=== PATIENT | female | born 1985 | race Caucasian/White ===

== ENCOUNTER 2020-08-25 12:20 | Outpatient (CLI) | payer OTHER, SELFPAY ==
--- NOTE | ~2020-08-25 | US_ITS ---
EXAMINATION: US breast LT limited HISTORY: Palpable lump in the upper outer quadrant of the left breast TECHNIQUE: Limited left breast ultrasound is performed in the area of clinical concern COMPARISON: 11/22/2019 FINDINGS: There is no evidence of focal abnormal cystic or solid mass in the vicinity of the reported palpable abnormality of concern of the breast. IMPRESSION: No specific sonographic correlate is identified for the reported palpable abnormality of concern. Fur ther evaluation at this time should be based on clinical assessment. Continued follow-up physical exa mination is recommended. BI-RADS Category 1: Negative Reviewed, dictated and finalized at location A. IMPRESSION: No specific sonographic correlate is identified for the reported palpable abnor mality of concern. Further evaluation at this time should be based on clinical assessment. Continued follow-up physical examination is recommended. BI-RADS Category 1: Negative
== END 2020-08-25 12:21 | disposition home or self-care (01) ==
PROVIDERS: PCP Internal Medicine; Visit Provider Obstetrics & Gynecology
DX: N63.20 Unspecified lump in the left breast, unspecified quadrant (principal)
CPT/HCPCS: 76642

== ENCOUNTER 2020-09-13 08:00 | Outpatient (CLI) | payer OTHER, SELFPAY ==
--- NOTE | ~2020-09-13 | US_ITS ---
EXAMINATION: US pelvic complete w TV DATE: 09/13/2020 08:32 INDICATION: Uterine fibroid Comparison:09/12/2017 TECHNIQUE: Multiple transabdominal and endovaginal sonographic images of the pelvis performed. FINDINGS: The uterus measures 10.3 x 3.6 x 5.5 cm. There is a uterine fibroid measuring 2.9 x 2.6 x 2 .3 cm. There is a nabothian cysts. The endometrial complex measures 7 mm. The right ovary measures 2.9 x 1.7 x 2.5 cm and the left ovary measures 3.1 x 2.5 x 2.3 cm. There ar e small follicles in each ovary. There is no free fluid in the pelvis. There are no abnormal masses seen on either side. IMPRESSION: 1. Enlarged uterus with fibroid measuring 2.9 cm maximum Reviewed, dictated and finalized at location B.
== END 2020-09-13 08:01 | disposition home or self-care (01) ==
LOC: CHSIMG 08:02
PROVIDERS: PCP Internal Medicine; Visit Provider Obstetrics & Gynecology
DX: N93.9 Abnormal uterine and vaginal bleeding, unspecified (principal)
CPT/HCPCS: 76830; 76856

== ENCOUNTER 2021-02-07 11:41 | Outpatient (CLI) | payer OTHER, SELFPAY | END 2021-02-07 11:42 | disposition home or self-care (01) | LOC: ANHCOVIDVC 11:42 | PROVIDERS: PCP Internal Medicine | DX: Z23 Encounter for immunization (principal) | CPT/HCPCS: 0001A; 91300 ==

== ENCOUNTER 2021-02-21 08:57 | Outpatient (CLI) | payer OTHER, SELFPAY ==
--- NOTE | ~2021-02-21 | US_ITS ---
EXAMINATION: US pelvic complete w TV DATE: 02/21/2021 10:27 INDICATION: Uterine fibroids Comparison:09/13/2020 TECHNIQUE: Multiple transabdominal and endovaginal sonographic images of the pelvis performed. FINDINGS: The uterus measures 12.1 x 5 x 6.3 cm. There is a uterine fibroid measuring 2.5 x 2 x 1.4 c m compared with 2.6 x 2.9 x 2.3 cm on prior study. The endometrial complex measures 9 mm. The right ovary measures 2.4 x 2.7 x 1.7 cm and the left ovary measures 3.1 x 2.4 x 2.1 cm. There ar e small follicles in each ovary. Normal doppler signal in both ovaries. There is no free fluid in the pelvis. There are no abnormal masses seen on either side. IMPRESSION: 1. Enlarged uterus containing a fibroid measuring up to 2.5 cm, which has diminished in size compared with prior study. Reviewed, dictated and finalized at location B. IMPRESSION: 1. Enlarged uterus containing a fibroid measuring up to 2.5 cm, which has dimin ished in size compared with prior study.
[2021-02-21 09:12] LABS: Basophils Absolute Auto 0.08 K/mm3 (0.00-0.10); Basophils Percent Auto 0.6 % (0.0-1.0); Eosinophils Absolute Auto 0.28 K/mm3 (0.02-0.50); Eosinophils Percent Auto 2.1 % (1.0-6.0); Hematocrit 42.1 % (35.0-49.0); Immature Granulocyte Absolute 0.05 K/mm3 (0.00-0.00); Immature Granulocyte Percent A 0.4 % (0.0-0.0); Lymphocytes Absolute Auto 4.85 K/mm3 (1.10-4.50); Lymphocytes Percent Auto 35.8 % (18.0-42.0); Mean Corpuscular HGB Conc 33.3 g/dL (32.0-36.0); Mean Corpuscular Hemoglobin 30.4 pg (27.0-31.0); Mean Corpuscular Volume 91.3 fL (78.0-102.0); Mean Platelet Volume 9.7 fl (9.2-11.8); Monocytes Percent Auto 6.6 % (2.0-11.0); Neutrophils Absolute Auto 7.4 K/mm3 (1.7-7.2); Neutrophils Percent Auto 54.5 % (50.0-70.0); Platelet Count Result 330 K/mm3 (150-420); Red Blood Count 4.61 M/mm3 (4.20-5.40); Red Cell Distribution Width 13.6 % (11.6-14.4); White Blood Count 13.5 K/mm3 (4.8-10.8)
[2021-02-21 09:21] LABS: Hemoglobin A1C 5.8 % (<5.7)
[2021-02-21 10:10] LABS: Add Urine Microscopic? NO; Appearance Urine Clear (Clear); Bilirubin Urine Negative (Negative); Blood Urine Negative (Negative); Color Urine Yellow (Yellow); Glucose Urine UA Negative (Negative); Ketones Urine Negative (Negative); Leukocyte Esterase Ur Negative LEU/UL (Negative); Nitrate Urine Negative (Negative); Protein Urine Negative (Negative); Urobilinogen Urine 0.2 mg/dL (0.2-1.0)
[2021-02-21 10:27] LABS: Creatinine Urine 117.92 mg/dL (40-278); Microalbumin Urine Random < 13.0 mg/L
[2021-02-21 10:28] LABS: Alanine Aminotransferase 38 U/L (14-59); Albumin Level 3.9 g/dL (3.4-5.0); Alkaline Phosphatase 73 U/L (46-116); Anion Gap 11 mmol/L (8-16); Aspartate Amino Transferase 16 U/L (15-37); Bilirubin,Total 0.3 mg/dL (0.00-1.00); Blood Urea Nitrogen 18 mg/dL (7-18); Calcium 8.8 mg/dL (8.5-10.1); Carbon Dioxide 26 mmol/L (21-32); Chloride 101 mmol/L (98-108); Cholesterol 150 mg/dL (0-200); Creatine Kinase 59 U/L (26-192); Estimated Glomerular Filt Rate 58; Glucose 104 mg/dL (70-99); HDL Direct 44 mg/dL (40-60); LDL Cholesterol Calculated 61 mg/dL (<130); Osmolality Calculated 287 mOsm/kg (285-295); Potassium 4.3 mmol/L (3.5-5.1); Sodium 138 mmol/L (136-145); Total Protein 7.2 g/dL (6.4-8.2); Triglycerides 223 mg/dL (0-150)
[2021-02-23 12:17] LABS: Vitamin D 25 Hydroxy 40 ng/mL (30-100)
== END 2021-02-21 08:58 | disposition home or self-care (01) ==
PROVIDERS: PCP Internal Medicine; Visit Provider Obstetrics & Gynecology
DX: E78.5 Hyperlipidemia, unspecified (principal); E55.9 Vitamin D deficiency, unspecified; R73.01 Impaired fasting glucose; D25.9 Leiomyoma of uterus, unspecified
CPT/HCPCS: 36415; 76830; 76856; 80053; 80061; 81003; 82043; 82306; 82550; 83036; 85025

== ENCOUNTER 2021-02-27 15:34 | Outpatient (CLI) | payer OTHER, SELFPAY ==
[2021-02-27 15:54] LABS: Basophils Absolute Auto 0.07 K/mm3 (0.00-0.10); Basophils Percent Auto 0.7 % (0.0-1.0); Eosinophils Absolute Auto 0.18 K/mm3 (0.02-0.50); Eosinophils Percent Auto 1.8 % (1.0-6.0); Hematocrit 42.3 % (35.0-49.0); Hemoglobin 14.3 g/dL (12.0-15.0); Immature Granulocyte Absolute 0.04 K/mm3 (0.00-0.00); Immature Granulocyte Percent A 0.4 % (0.0-0.0); Lymphocytes Percent Auto 38.9 % (18.0-42.0); Mean Corpuscular HGB Conc 33.8 g/dL (32.0-36.0); Mean Corpuscular Hemoglobin 30.6 pg (27.0-31.0); Mean Corpuscular Volume 90.6 fL (78.0-102.0); Mean Platelet Volume 9.6 fl (9.2-11.8); Monocytes Absolute Auto 0.56 K/mm3 (0.10-0.90); Monocytes Percent Auto 5.4 % (2.0-11.0); Neutrophils Absolute Auto 5.4 K/mm3 (1.7-7.2); Neutrophils Percent Auto 52.8 % (50.0-70.0); Platelet Count Result 358 K/mm3 (150-420); Red Blood Count 4.67 M/mm3 (4.20-5.40); Red Cell Distribution Width 13.2 % (11.6-14.4); White Blood Count 10.3 K/mm3 (4.8-10.8)
[2021-02-27 16:15] LABS: Hemoglobin A1C 5.7 % (<5.7)
[2021-02-27 17:10] LABS: Cholesterol 228 mg/dL (0-200); HDL Direct 45 mg/dL (40-60); LDL Cholesterol Calculated 133 mg/dL (<130); Triglycerides 248 mg/dL (0-150)
[2021-03-02 11:09] LABS: DHEA-Sulfate 98 mcg/dL (23-266)
[2021-03-03 08:31] LABS: FSH 8.8 mIU/mL (***); LH 4.8 mIU/mL (***); Progesterone <0.2 ng/mL (***)
[2021-03-03 12:55] LABS: Testosterone Free 3.1 pg/mL (0.1-6.4); Testosterone Total 36 ng/dL (2-45)
[2021-03-05 17:17] LABS: Estradiol, Ultrasensitive 42 pg/mL
[2021-03-06 13:42] LABS: Reference Lab Test Name AMH
[2021-03-06 13:43] LABS: Reference Lab Test Result 2.98
[2021-03-16 09:02] LABS: Sex Hormone Binding Globulin 71
== END 2021-02-27 15:35 | disposition home or self-care (01) ==
LOC: CHSLAB 15:38
PROVIDERS: PCP Internal Medicine; Visit Provider Obstetrics & Gynecology
DX: N92.6 Irregular menstruation, unspecified (principal)
CPT/HCPCS: 36415; 80061; 82627; 82670; 83001; 83002; 83036; 83498; 83520; 84144; 84270; 84402; 84403; 84443; 85025

== ENCOUNTER 2021-03-02 11:42 | Outpatient (CLI) | payer OTHER, SELFPAY | END 2021-03-02 11:43 | disposition home or self-care (01) | LOC: ANHCOVIDVC 11:42 | PROVIDERS: PCP Internal Medicine | DX: Z23 Encounter for immunization (principal) | CPT/HCPCS: 0002A; 91300 ==

== ENCOUNTER 2021-03-10 13:52 | Outpatient (CLI) | payer OTHER, SELFPAY ==
[2021-03-10 14:21] LABS: SARS-CoV-2 Ag Negative (Negative)
== END 2021-03-10 13:53 | disposition home or self-care (01) ==
LOC: CHSLAB 13:56
PROVIDERS: PCP Internal Medicine; Visit Provider Obstetrics & Gynecology
DX: Z20.822 Contact with and (suspected) exposure to COVID-19 (principal)
CPT/HCPCS: 87426; C9803

== ENCOUNTER 2021-03-13 18:03 | Emergency (ER) | payer OTHER, SELFPAY ==
--- NOTE | ~2021-03-13 | CT_ITS ---
EXAMINATION: CTA chest PE protocol DATE: 03/13/2021 19:35 CDT INDICATION: Chest pain and tachycardia. Wheezing. Chest pain. TECHNIQUE: Computed tomographic angiography (CTA) of the chest was performed with 100 mL Omnipaque-35 0 intravenous contrast. The dose-length product was 958.06 mGy-cm. Maximum intensity projection 3D-re constructions of the aorta and other arteries were constructed by the technologist on a separate work station. Automated exposure control and iterative reconstruction technique were employed. COMPARISON: Chest x-ray dated 08/16/2019. FINDINGS: The study is technically adequate without evidence for pulmonary embolism. Heart size upper normal. No thoracic lymphadenopathy. No significant pleural or pericardial effusion. No evidence for aortic aneurysm or dissection. There is a 6 mm fissural nodule, likely benign. No focal airspace con solidation. IMPRESSION: 1. No acute cardiopulmonary disease. No evidence for pulmonary embolism. 2: Right fissural nodule measuring 6 mm, likely benign. Consider follow-up low dose CT chest in 12 mo nt. Reviewed, dictated and finalized at location A. IMPRESSION: 1. No acute cardiopulmonary disease. No evidence for pulmonary embolism. 2: Right fissural nodule measuring 6 mm, likely benign. Consider follow-up low dose CT chest in 12 months.
[2021-03-13 18:23] VITALS: BP 124/73; PULSE 105; RESP 20; TEMP 36.9; O2SAT 97
--- NOTE | 2021-03-13 18:26 | ED.CHESTPAIN ---
HPI - Chest Pain General Chief Complaint: Upper Respiratory Infection Stated Complaint: wheezing, congested, just had surgery Time Seen by Provider: 03/13/21 18:26 Source: patient Mode of arrival: ambulatory Limitations: no limitations History of Present Illness HPI narrative: 35-year-old woman history of COPD and asthma comes in today complaining of mild shortness of breath, cough, wheezing, and some a lower left anterior chest discomfort. Patient states that she had surgery yesterday for which she underwent general anesthesia. She denies fever, pleuritic pain, vomiting, abdominal pain, throat swelling, or sputum or blood production. Inhaler seemed to help her symptoms somewhat. MD complaint: chest discomfort Onset (ago): day(s) (1) Timing of current episode: constant and still present Prior episodes: No Onset: during rest Pain location: left chest Pain radiation: none Severity: moderate Quality: sharp Relieving factors: nothing Exacerbating factors: nothing Context: recent surgery Treatment prior to arrival: none Risk Factors Coronary artery disease risk factors: smoking history Pulmonary embolism risk factors: recent surgery Related Data On Oral Contraceptives: No Home Medications Medication Instructions Recorded Confirmed albuterol sulfate 2 inh INHALATION Q4H PRN 03/13/21 03/13/21 atorvastatin 20 mg PO DAILY 03/13/21 03/13/21 cholecalciferol (vitamin D3) 25 mcg PO DAILY 03/13/21 03/13/21 [Vitamin D3] duloxetine 30 mg PO DAILY 03/13/21 03/13/21 metoprolol tartrate 25 mg PO DAILY 03/13/21 03/13/21 [id number]-FA-vit K 1 tablet PO DAILY 03/13/21 03/13/21 [Adults Multivitamin] Allergies Allergy/AdvReac Type Severity Reaction Status Date / Time No Known Allergies Allergy Unverified 03/13/21 18:36 Review of Systems Constitutional: Constitutional: Denies chills and Denies fever(s) Eyes: Eyes: Denies change in vision and Denies photophobia ENT: Denies dysphagia, Denies nasal congestion and Denies sore throat Cardiovascular: Cardiovascular: Reports chest pain and Denies radiating jaw, neck or arm pain Respiratory: Respiratory: Reports chest congestion, Reports cough, Reports dyspnea and Reports wheezing Gastrointestinal: Gastrointestinal: Denies abdominal pain, Denies nausea and Denies vomiting Musculoskeletal: Musculoskeletal: Denies back pain, Denies arthralgias and Denies joint swelling Integumentary/Breasts: Skin/Breast: Denies pruritus, Denies erythema and Denies rash Neurologic: Denies vertigo, Denies dizziness and Denies syncope Hematologic/Lymphatic: Hematologic/Lymphatic: Denies easy bleeding and Denies easy bruising Allergic/Immunologic: Allergic/Immunologic: Denies lip swelling and Denies tongue swelling [facility] Past Medical History Medical History (Updated 03/13/21 @ 19:51 by Yuri Medrano MD) Asthma COPD (chronic obstructive pulmonary disease) Tachycardia Social History Social History (Updated 03/13/21 @ 18:31 by Yuri Medrano MD) Smoking status: Current every day smoker Substance use: never Living arrangements: with family Gender identity (if verbalized by the patient): Female Exam Const: General: healthy appearing and alert Nutritional Appearance: obese Orientation/consciousness: patient oriented x3 Limitations: no limitations Other: Mildly anxious. HENMT: Head: normal to inspection Ears: external ears normal, TM's normal bilaterally and EAC's normal General nose exam: Normal nares present Face and sinus: normal facial exam Mouth: Yes moist mucous membranes Throat: posterior oropharynx normal Eyes: Conjunctivae: conjunctivae normal Pupils: Equal, round and reactive pupils present EOM: EOMs intact bilaterally Neck: Neck: normal visual inspection and no lymphadenopathy Other: No tenderness or crepitus Resp: Effort & Inspection: normal respiratory effort and not labored Auscultation: no rales, no rhonchi and wheezes expiratory
[2021-03-13 18:49] LABS: Hematocrit 39.2 % (35.0-49.0); Hemoglobin 13.2 g/dL (12.0-15.0); Mean Corpuscular HGB Conc 33.7 g/dL (32.0-36.0); Mean Corpuscular Hemoglobin 30.8 pg (27.0-31.0); Mean Corpuscular Volume 91.4 fL (78.0-102.0); Mean Platelet Volume 9.6 fl (9.2-11.8); Platelet Count Result 356 K/mm3 (150-420); Red Blood Count 4.29 M/mm3 (4.20-5.40); Red Cell Distribution Width 13.2 % (11.6-14.4)
[2021-03-13 18:53] LABS: White Blood Count 20.7 K/mm3 (4.8-10.8)
[2021-03-13 18:59] LABS: Pregnancy On Board Control Positive; Urine Pregnancy Test Negative
[2021-03-13 19:04] LABS: Alanine Aminotransferase 52 U/L (14-59); Alkaline Phosphatase 65 U/L (46-116); Anion Gap 10 mmol/L (8-16); Aspartate Amino Transferase 22 U/L (15-37); Bilirubin,Total 0.4 mg/dL (0.00-1.00); Blood Urea Nitrogen 18 mg/dL (7-18); Carbon Dioxide 29 mmol/L (21-32); Chloride 101 mmol/L (98-108); D Dimer 0.19 mg/L (0.19-0.50); Estimated CRCL calculation 70 ml/min; Estimated Glomerular Filt Rate 60; Glucose 93 mg/dL (70-99); Osmolality Calculated 291 mOsm/kg (285-295); Partial Thromboplastin Time 21.3 SEC (23.90-30.70); Potassium 3.7 mmol/L (3.5-5.1); Prothrombin Time 11.1 Seconds (9.50-12.10); Sodium 140 mmol/L (136-145); Total Protein 7.4 g/dL (6.4-8.2)
[2021-03-13 19:05] LABS: Band Neutrophils Percent 0 % (0-6); Basophils Percent Manual 0 % (0-1); Eosinophils Percent Manual 0 % (1-6); Lymphocytes Absolute Manual 6.83 K/mm3 (1.1-4.5); Lymphocytes Percent Manual 33 % (18-44); Monocytes Absolute Manual 1.03 K/mm3 (0.1-0.90); Monocytes Percent Manual 5 % (3-9); Neutrophils Absolute Manual 12.83 K/mm3 (1.7-7.2); Neutrophils Percent Manual 62 % (46-73); Total Cells Counted 100
[2021-03-13 19:06] LABS: Platelet Estimate Adequate (Adequate)
[2021-03-13 19:55] LABS: Influenza A QL RT-PCR Negative (Negative); Influenza B QL RT-PCR Negative (Negative); SARS-CoV-2 RNA PCR Negative (Negative)
[2021-03-13 20:22] VITALS: BP 134/78; PULSE 99; RESP 20; TEMP 36.9; O2SAT 97
== END 2021-03-13 20:32 | disposition home or self-care (01) ==
PROVIDERS: Emergency Provider Emergency Medicine; PCP Internal Medicine
DX: J98.01 Acute bronchospasm (principal); Z20.822 Contact with and (suspected) exposure to COVID-19; F17.200 Nicotine dependence, unspecified, uncomplicated
CPT/HCPCS: 36415; 71275; 80053; 81025; 85025; 85380; 85610; 85730; 87040; 87077; 87086; 87088; 87186; 87502; 99283; 99284; C9803; Q9967; U0003; U0005

== ENCOUNTER 2021-07-09 11:20 | Outpatient (CLI) | payer OTHER, SELFPAY ==
[2021-07-09 12:59] LABS: SARS-CoV-2 RNA PCR Negative (Negative)
== END 2021-07-09 11:21 | disposition home or self-care (01) ==
LOC: CHSLAB 11:22
PROVIDERS: PCP Internal Medicine; Visit Provider Internal Medicine
DX: J06.9 Acute upper respiratory infection, unspecified (principal); Z20.822 Contact with and (suspected) exposure to COVID-19
CPT/HCPCS: C9803; U0003; U0005

== ENCOUNTER 2021-07-26 08:49 | Outpatient (CLI) | payer OTHER, SELFPAY ==
[2021-07-26 10:00] LABS: SARS-CoV-2 RNA PCR Positive (Negative)
== END 2021-07-26 08:50 | disposition home or self-care (01) ==
LOC: CHSLAB 08:50
PROVIDERS: PCP Internal Medicine; Visit Provider Internal Medicine
DX: U07.1 COVID-19 (principal); J06.9 Acute upper respiratory infection, unspecified
CPT/HCPCS: C9803; U0003; U0005

== ENCOUNTER 2021-07-27 11:57 | Outpatient (CLI) | payer OTHER, SELFPAY ==
[2021-07-27] MEDS: ACETAMINOPHEN 325 MG TABLET 650 MG PO (12:45)
[2021-07-27 12:56] VITALS: BMI 37.9
[2021-07-27 12:59] VITALS: BP 110/67; PULSE 92; RESP 16; TEMP 37.4; O2SAT 98
[2021-07-27] MEDS: FAMOTIDINE 20 MG TABLET PO (13:15)
[2021-07-27] MEDS: diphenhydrAMINE HCl CAP 25 MG CAPSULE PO (13:15)
[2021-07-27 14:41] VITALS: BP 107/70; PULSE 80; RESP 14; TEMP 37.2; O2SAT 98
--- NOTE | 2021-07-27 14:42 | PC.NURSE ---
Patient here for IV Regeneron infusion r/t covid positive and meeting criteria for high risk. Education on medication given. All concerns answered. Oral pre meds and IV Regeneron administered SEE JAN. Has body aches, non productive cough, and slight headache prior. Tolerated infusion well. Observed. Safe exit of hospital.
== END 2021-07-27 11:58 | disposition home or self-care (01) ==
LOC: CHSTREATRM 11:59
PROVIDERS: PCP Internal Medicine; Visit Provider Internal Medicine
DX: Z23 Encounter for immunization (principal); U07.1 COVID-19
CPT/HCPCS: A9270; J7050; M0243

== ENCOUNTER 2022-03-29 10:39 | Outpatient (CLI) | payer OTHER, SELFPAY ==
[2022-03-29 10:59] LABS: Basophils Percent Auto 0.7 % (0.0-1.0); Eosinophils Absolute Auto 0.28 K/mm3 (0.02-0.50); Eosinophils Percent Auto 1.8 % (1.0-6.0); Hematocrit 43.3 % (35.0-49.0); Hemoglobin 14.5 g/dL (12.0-15.0); Immature Granulocyte Absolute 0.09 K/mm3 (0.00-0.00); Immature Granulocyte Percent A 0.6 % (0.0-0.0); Lymphocytes Absolute Auto 5.22 K/mm3 (1.10-4.50); Lymphocytes Percent Auto 34.3 % (18.0-42.0); Mean Corpuscular HGB Conc 33.5 g/dL (32.0-36.0); Mean Corpuscular Hemoglobin 30.8 pg (27.0-31.0); Mean Corpuscular Volume 91.9 fL (78.0-102.0); Mean Platelet Volume 10.1 fl (9.2-11.8); Monocytes Absolute Auto 1.02 K/mm3 (0.10-0.90); Monocytes Percent Auto 6.7 % (2.0-11.0); Neutrophils Absolute Auto 8.5 K/mm3 (1.7-7.2); Neutrophils Percent Auto 55.9 % (50.0-70.0); Platelet Count Result 320 K/mm3 (150-420); Red Blood Count 4.71 M/mm3 (4.20-5.40); White Blood Count 15.2 K/mm3 (4.8-10.8)
[2022-03-29 11:27] LABS: Influenza Control Valid (Valid)
[2022-03-29 11:35] LABS: SARS-CoV-2 Ag Negative (Negative)
[2022-03-29 12:17] LABS: SARS-CoV-2 RNA PCR Negative (Negative)
== END 2022-03-29 10:40 | disposition home or self-care (01) ==
LOC: CHSLAB 10:41
PROVIDERS: PCP Internal Medicine; Visit Provider Internal Medicine
DX: J06.9 Acute upper respiratory infection, unspecified (principal); Z20.822 Contact with and (suspected) exposure to COVID-19
CPT/HCPCS: 85025; 87081; 87426; 87804; 87880; C9803; U0003; U0005

== ENCOUNTER 2022-05-01 10:20 | Outpatient (CLI) | payer OTHER, SELFPAY ==
[2022-05-01 12:10] LABS: Influenza Control Valid (Valid)
[2022-05-01 12:43] LABS: SARS-CoV-2 Ag Positive (Negative)
== END 2022-05-01 10:21 | disposition home or self-care (01) ==
LOC: CHSLAB 10:22
PROVIDERS: PCP Internal Medicine; Visit Provider Internal Medicine
DX: U07.1 COVID-19 (principal); J06.9 Acute upper respiratory infection, unspecified
CPT/HCPCS: 87081; 87426; 87804; 87880; C9803

== ENCOUNTER 2023-05-26 14:53 | Outpatient (CLI) | payer OTHER, SELFPAY ==
[2023-05-26 15:23] LABS: Basophils Absolute Auto 0.05 K/mm3 (0.00-0.10); Basophils Percent Auto 0.4 % (0.0-1.0); Eosinophils Percent Auto 0.9 % (1.0-6.0); Hematocrit 41.5 % (35.0-49.0); Hemoglobin 14.1 g/dL (12.0-15.0); Immature Granulocyte Absolute 0.04 K/mm3 (0.00-0.00); Immature Granulocyte Percent A 0.3 % (0.0-0.0); Lymphocytes Absolute Auto 3.78 K/mm3 (1.10-4.50); Lymphocytes Percent Auto 32.3 % (18.0-42.0); Mean Corpuscular Hemoglobin 31.1 pg (27.0-31.0); Mean Corpuscular Volume 91.4 fL (78.0-102.0); Mean Platelet Volume 9.8 fl (9.2-11.8); Monocytes Absolute Auto 0.63 K/mm3 (0.10-0.90); Monocytes Percent Auto 5.4 % (2.0-11.0); Neutrophils Absolute Auto 7.1 K/mm3 (1.7-7.2); Neutrophils Percent Auto 60.7 % (50.0-70.0); Platelet Count Result 349 K/mm3 (150-420); Red Blood Count 4.54 M/mm3 (4.20-5.40); Red Cell Distribution Width 12.7 % (11.6-14.4); White Blood Count 11.7 K/mm3 (4.8-10.8)
[2023-05-26 15:44] LABS: Appearance Urine Clear (Clear); Bilirubin Urine Negative (Negative); Blood Urine Trace-Intact (Negative); Color Urine Yellow (Yellow); Glucose Urine UA Negative (Negative); Ketones Urine Negative (Negative); Leukocyte Esterase Ur Negative LEU/UL (Negative); Nitrate Urine Negative (Negative); Protein Urine Negative (Negative); Specific Grav Ur 1.025 (1.010-1.020); Urobilinogen Urine 0.2 mg/dL (0.2-1.0)
[2023-05-26 15:47] LABS: Alanine Aminotransferase 42 U/L (14-59); Albumin Level 3.9 g/dL (3.4-5.0); Alkaline Phosphatase 71 U/L (46-116); Anion Gap 13 mmol/L (8-16); Aspartate Amino Transferase 17 U/L (15-37); Bilirubin,Total 0.3 mg/dL (0.00-1.00); Blood Urea Nitrogen 13 mg/dL (7-18); Carbon Dioxide 24 mmol/L (21-32); Chloride 102 mmol/L (98-108); Cholesterol 150 mg/dL (0-200); Creatine Kinase 56 U/L (26-192); Estimated Glomerular Filt Rate > 60; Glucose 103 mg/dL (70-99); HDL Direct 47 mg/dL (40-60); LDL Cholesterol Calculated 70 mg/dL (<130); Osmolality Calculated 288 mOsm/kg (285-295); Potassium 4.4 mmol/L (3.5-5.1); Sodium 139 mmol/L (136-145); Total Protein 7.6 g/dL (6.4-8.2); Triglycerides 165 mg/dL (0-150)
[2023-05-26 15:54] LABS: Add Urine Microscopic? YES
[2023-05-26 15:55] LABS: Bacteria Urine 3+ /hpf; Squamous Epithelial Cell Urine Few /hpf (Few); WBC Urine None seen /hpf (0-3)
[2023-05-26 15:58] LABS: Thyroid Stimulating Hormone Reflex 2.65 u/IU/mL (0.36-3.74)
[2023-05-28 19:53] LABS: Vitamin D 25 Hydroxy 39 ng/mL (30-100)
[2023-05-29 14:22] LABS: DHEA-Sulfate 82 mcg/dL (23-266)
[2023-05-30 04:47] LABS: FSH 7.1 mIU/mL (***); Progesterone 1.7 ng/mL (***); Prolactin 10.7 ng/mL (***)
[2023-05-30 22:06] LABS: Estradiol, Ultrasensitive 350 pg/mL
[2023-05-31 16:43] LABS: Testosterone Free 5.6 pg/mL (0.1-6.4); Testosterone Total 91 ng/dL (2-45)
== END 2023-05-26 14:54 | disposition home or self-care (01) ==
PROVIDERS: PCP Internal Medicine; Visit Provider Obstetrics & Gynecology
DX: N92.6 Irregular menstruation, unspecified (principal); E78.2 Mixed hyperlipidemia; E55.9 Vitamin D deficiency, unspecified
CPT/HCPCS: 36415; 80053; 80061; 81001; 82306; 82550; 82627; 82670; 83001; 84144; 84146; 84402; 84403; 84443; 85025

== ENCOUNTER 2023-05-29 11:56 | Outpatient (CLI) | payer OTHER, SELFPAY ==
--- NOTE | ~2023-05-29 | US_ITS ---
Pelvic ultrasound. Clinical History: Irregular menstruation Technique: Realtime transabdominal and transvaginal scanning of the pelvis was performed. Color flow Doppler and Doppler spectral analysis were performed. Findings: The uterus is anteverted. The endometrial stripe has a thickness of 8 mm. Partially exophy tic fibroid measures 2.8 cm in diameter. The right ovary measures 4.2 x 4.0 x 3.6 cm. Right ovarian cyst measures 3.4 cm in diameter, with pro bable thin internal septations. The left ovary measures 3.2 x 3.2 x 2.1 cm. No significant left ovarian or adnexal mass is seen. There is no evidence of free fluid in the cul de sac. Impression: 3.4 cm mildly complex right ovarian cyst, as detailed above. 2.8 cm uterine fibroid, as above. Reviewed, dictated and finalized at [facility]. Impression: 3.4 cm mildly complex right ovarian cyst, as detailed above. 2.8 cm uterine fibroid, as above.
== END 2023-05-29 11:57 | disposition home or self-care (01) ==
LOC: CHSIMG 11:57
PROVIDERS: PCP Internal Medicine; Visit Provider Obstetrics & Gynecology
DX: N92.6 Irregular menstruation, unspecified (principal); N83.201 Unspecified ovarian cyst, right side; D25.9 Leiomyoma of uterus, unspecified
CPT/HCPCS: 76830; 76856

== ENCOUNTER 2023-07-10 10:32 | Outpatient (CLI) | payer OTHER, SELFPAY ==
--- NOTE | 2023-07-10 11:36 | ECG_ITS ---
Measurements Intervals [place] Rate: 68 P: 38 FL: 166 QRS: 59 QRSD: 109 T: 57 QT: 390 QTc: 417 Interpretive Statements SINUS RHYTHM NORMAL ELECTROCARDIOGRAM NO PREVIOUS ECG AVAILABLE FOR COMPARISON Electronically Signed On 07-10-2023 13:32:51 CDT by Sergo Patel M.D.
== END 2023-07-10 10:33 | disposition home or self-care (01) ==
LOC: ANHSURGERY 11:31
PROVIDERS: PCP Internal Medicine; Visit Provider Obstetrics & Gynecology
DX: R00.0 Tachycardia, unspecified (principal)
CPT/HCPCS: 93005

== ENCOUNTER 2023-07-14 00:11 | Day surgery (SDC) | payer OTHER, SELFPAY ==
[2023-07-07 10:18] VITALS: BMI 36.0
--- NOTE | 2023-07-07 15:17 | PC.NURSE ---
Report to the Outpatient Waiting Room, entrance under the green pavilion located off [facility], at 0600 on 07-14-23. Planned Procedure Time: 0730. Time changes happen often and if your time is changed the preop area will call you the afternoon before. - You and your visitor will be asked to self-screen and do not enter if you have any COVID symptoms. - A mask is optional within the hospital at this time. Patients may have clear liquids (water, carbonated beverages, clear teas, apple juice) until 3 hours prior to surgery with a maximum of 20 ounces. 0430 - No food from midnight until time of surgery - Infants may have breast milk until 4 hours before surgery, formula 6 hours prior to surgery. - Children will be allowed to drink immediately following surgery. If applicable, please bring a bottle or sippy cup to assist with drinking. Juice, water, soda, and popsicles are readily available. For infants on formula, please bring formula the day of surgery. Pacifiers are allowed. Take the following medications with a SIP of water the morning of surgery: metoprolol; bring inhalers DOS DO NOT STOP ANY OF YOUR OTHER PRESCRIPTION MEDICATIONS PRIOR TO SURGERY ?EXCEPT THE FOLLOWING Medications to discontinue per physician: vitamins and supplements Date to take last dose: 07-11-23 Please no make-up, nail liberian, hairspray, perfume, deodorant, or body powder the day of surgery. No jewelry (including any body piercings) or valuables the day of surgery, leave them at home. Please take a shower or bath the night before, or the morning of, surgery with an antibacterial soap. Wear comfortable, loose fitting clothing. Children are encouraged to wear pajamas. - Jewelry must be removed prior to entering the operating room. Rings and piercings that are not removed may be cut off. - The hospital will not accept responsibility for valuables. - Please leave all valuables, including medications, at home the day of surgery. If you are going home after surgery, a licensed funeral limousine driver must drive you home. - NO public transportation without another adult if you receive anesthesia. - We recommend that an adult stay with you for 24 hours following discharge. - We also recommend that you do not drive, make important decision, drink alcoholic beverages, or take any drugs that were not prescribed by your health care provider for at least 24 hours after your discharge time. For Pediatric surgeries, we recommend two adults accompany the child home. Follow any additional instructions given to you from your surgeon. If you or anyone in your household have experienced Covid symptoms in the past week, please notify your surgeon or the nurse liaison at the phone number below for possible testing. Telephone instructions given to Keeley Monaco and asked if any additional questions and then verbalized understanding. Patient advised to call surgeon office or pre surgery nurse liaison [phone] if any additional questions.
--- NOTE | 2023-07-13 15:46 | PM.IMHP ---
H&P: HPI History of Present Illness Date/Time: 07/13/23 15:46 Chief Complaint: AUB, sterilization, pelvic pain, vaginal abscess Narrative: Keeley is a 37yo P1012, who presents for surgery. Repeat PCOS w/u was positive for testosterone of 91 and a right ovarian cyst; fibroid was noted to be unchanged. She has had a long standing h/o irregular periods; had a HSC/D&C/polypectomy 02/2021 (benign), PCOS w/u was negative then. She reports her cycles are very weird; has only had 3 episodes of light bleeding this year that last 1-2 days of spotting (Dec and twice in February). She then had a very heavy period in April with severe cramping and bleeding w/ passage of large clots. She has been having cramping on and off randomly and the pain was severe during that period. She is sexually active but no longer desires children. She does not want to take hormones as she is trying to lose weight. She also called into the office on 07/10/23 with a bartholin's gland abscess. Review of Systems Constitutional: Constitutional: Denies chills, Denies fever(s) and Denies headache(s) Eyes: Eyes: Denies change in vision ENT: Denies dizziness and Denies headache(s) Cardiovascular: Cardiovascular: Denies chest pain and Denies dyspnea Respiratory: Respiratory: Denies cough and Denies dyspnea Gastrointestinal: Gastrointestinal: Denies abdominal pain and Denies change in stool character Genitourinary: Genitourinary: Reports abnormal menses, Reports genital lesions, Reports pelvic pain, Denies vaginal discharge, Denies vaginal odor and Denies vaginal pruritus Neurologic: Denies dizziness and Denies headache(s) Psychiatric: Psychiatric: Denies anxiety and Denies depression [facility] Past Medical History Medical History Asthma COPD (chronic obstructive pulmonary disease) Encounter for IUD removal mirena iud removal 02/25/2017 High cholesterol Migraines Panic attacks Stroke Tachycardia Tonsillectomy planned Surgical History Surgical History Delivery by section H/O gynecological procedure mirena IUD insertion & removal of IUD 01/28/2017 Mirena IUD removal and subsequent insertion of new device 2011 Family History Family History Mother Diabetes mellitus Family history of seizure disorder Father Family history of chronic obstructive pulmonary disease Grandparent Cerebrovascular accident Family history of heart disease in male family member before age 55 Diabetes mellitus Other Dementia Family history of transient ischemic attacks Heart disease Hypertension Hypoglycemia Malignant tumor of ovary Pulmonary embolism Social History Social History Smoking packs per day: 0.5 Smoking cigarettes per day: 10.0 Years smoked: 15 Smoking pack-years: 7.50 Smoking status: Current every day smoker Tobacco type: cigarettes Second hand tobacco smoke exposure: No Smoking end date: 11/24/03 Alcohol intake: current Drinks per week: 3 Alcohol use details: socially Substance use: never Substance use type: does not use Lack of Transportation: YES Lack of Food: Sometimes True Current Housing: I Do Not Have Housing Concerned About Future Housing: Decline to Answer Difficulty Paying Gas/Electric Bills: Decline to Answer Difficulty Paying for Meds: Decline to Answer Currently Unemployed: Decline to Answer Education: Bachelor's Degree Difficulty w/ Childcare or Family Care: No Living arrangements: with family Occupation/Education: occupation Gender identity (if verbalized by the patient): Female Sexual Orientation (if Verbalized by the Patient): Straight or Heterosexual Spiritual care concerns: No Meds Home Medications and Allergies Home Medications Medication Instru
[2023-07-14] VITALS (9 sets, daily range): BP systolic 92–110; BP diastolic 54–83; PULSE 79–104; RESP 14–20; TEMP 36.3–36.4; O2SAT 97–100
[2023-07-14] MEDS: ACETAMINOPHEN 500 MG TABLET 1000 MG PO (06:37)
[2023-07-14] MEDS: LACTATED RINGERS 1,000 ML 30 ML IV CONT ×2 (06:45→09:08)
[2023-07-14] MEDS: KETOROLAC 15 MG/ML VIAL (*BKC) IV PUSH (06:47)
--- NOTE | 2023-07-14 07:00 | WPDANESEPPF ---
Anes - Initial Pre Proc Eval Procedure: Operation Date: 07/14/23 07:30 Proposed Procedures p Hysteroscopy Dilation and Curettage with Myomectomy, - Perla Browning MD s Right Laparoscopic Ovarian Cystectomy, Bilateral Laparoscopic Salpingectomy, - Perla Browning MD s Marsupialization of Bartholin's Gland Cyst - Perla Browning MD Date/Time: 07/14/23 07:00 Surgeon: Perla Browning MD Pre Op Diagnosis: rt ovarian cyst, abnormal uterine bleeding Patient Data Age: 37 Gender: F Height: 1.57 m Weight: 90 kg Last Vital Signs Temp 36.3 C L 07/14/23 06:12 Pulse 82 07/14/23 06:12 Resp 20 07/14/23 06:12 BP 110/83 07/14/23 06:12 Pulse Ox 100 07/14/23 06:12 O2 Del Method Room Air 07/14/23 06:12 Allergies Allergy/AdvReac Type Severity Reaction Status Date / Time amoxicillin AdvReac Mild RASH Verified 07/14/23 06:34 Home Medications Medication Instructions Recorded Confirmed Type atorvastatin 20 mg tablet 20 mg PO DAILY 03/13/21 07/14/23 History cholecalciferol (vitamin D3) 25 25 mcg PO DAILY 03/13/21 07/14/23 History mcg (1,000 unit) capsule (Vitamin D3) duloxetine 30 mg capsule,delayed 30 mg PO DAILY 03/13/21 07/14/23 History release metoprolol tartrate 25 mg tablet 25 mg PO BID 03/13/21 07/14/23 History albuterol sulfate 90 mcg/actuation 2 puff inhalation Q4H PRN 07/07/23 07/14/23 History aerosol inhaler Shortness Of Breath Or Wheezing doxylamine succinate 25 mg tablet 25 mg PO HS 07/07/23 07/14/23 History (Unisom (doxylamine)) dulaglutide 1.5 mg/0.5 mL 1.5 mg subcut WEEKLY 07/07/23 07/14/23 History subcutaneous pen injector (Trulicity) sulfamethoxazole 800 1 tablet PO Q12H #10 tabs 07/10/23 07/14/23 Rx mg-trimethoprim 160 mg tablet (Bactrim DS) Patient hx anesthesia problems: other (resp depression) Family hx anesthesia problems: none Results Review: All pre-operative results and documents have been reviewed as part of the pre-operative evaluation. [facility] Past Medical History Medical History Asthma COPD (chronic obstructive pulmonary disease) Encounter for IUD removal mirena iud removal 02/25/2017 High cholesterol Migraines Panic attacks Stroke Tachycardia Tonsillectomy planned Surgical History Surgical History Delivery by section H/O gynecological procedure mirena IUD insertion & removal of IUD 01/28/2017 Mirena IUD removal and subsequent insertion of new device 2011 Family History Family History Mother Diabetes mellitus Family history of seizure disorder Father Family history of chronic obstructive pulmonary disease Grandparent Cerebrovascular accident Family history of heart disease in male family member before age 55 Diabetes mellitus Other Dementia Family history of transient ischemic attacks Heart disease Hypertension Hypoglycemia Malignant tumor of ovary Pulmonary embolism Social History Social History Smoking packs per day: 0.5 Smoking cigarettes per day: 10.0 Years smoked: 15 Smoking pack-years: 7.50 Smoking status: Current every day smoker Tobacco type: cigarettes Second hand tobacco smoke exposure: No Smoking end date: 11/24/03 Alcohol intake: current Drinks per week: 3 Alcohol use details: socially Substance use: never Substance use type: does not use Lack of Transportation: YES Lack of Food: Sometimes True Current Housing: I Do Not Have Housing Concerned About Future Housing: Decline to Answer Difficulty Paying Gas/Electric Bills: Decline to Answer Difficulty Paying for Meds: Decline to Answer Currently Unemployed: Decline to Answer Education: Bachelor's Degree Difficulty w/ Childcare or Family Care: No L
--- NOTE | 2023-07-14 07:26 | WPDHPUPDATE1 ---
History and Physical Update Update Date/Time: 07/14/23 07:26 History and Physical has been reviewed, including an updated exam of the patient. There are NO changes in the patient's condition. Risks, benefits, and alternatives have been discussed and questions answered. Patient agrees to proceed with ?laparoscopic unilateral ovarian cystectomy, bilateral salpingectomy, HSC/ D&C, and possible myomectomy.
--- NOTE | 2023-07-14 09:05 | W.PM.PROC2 ---
Procedure Note - Detailed Date of Procedure 07/14/23 Pre-op Diagnosis request for sterilization, rt ovarian cyst, abnormal uterine bleeding Post-op Diagnosis Same Procedure Performed Laparoscopic bilateral salpingectomy, bilateral ovarian cyst drainage, hysteroscopy with D&C Surgeon Perla Browning MD Anesthesia General and Local (30cc of 0.25% Marcaine w/ epi) Findings Omentum adhered to the anterior abdominal wall and to fundus of uterus (taken down). Uterus sounded to 10cm; irregular contour and enlarged (fibroids); adhered anteriorly with significant amount of scar tissue of HESHAM/anterior uterus to anterior abd wall (most taken down), bilateral ovaries with PCOS (multiple small cysts-- no overt ovarian cyst identified that could be easily removed). Bilateral fallopian tubes were elongated and tortuous due to the tension placed on the uterus. Left pelvic side was adhesions involving the colon were also noted and taken down. On HSC: stenotic/long cervix-- endometrial shaving collected using Aveta shaver. Diffusely thickened endometrium throughout the uterus, no obvious fibroids/polyps noted. Bilateral tubal ostia visualized. Good hemostasis at end of case. Description of Procedure Keeley was taken to the operating room where she was placed under general endotracheal anesthesia without complications. She was then prepped and draped in the usual sterile fashion in the dorsal lithotomy position with her legs in low Orlin stirrups and her arms tucked at her side with a strap over her chest. A time-out was performed and no preoperative antibiotics were indicated. My attention was turned down below where her bladder was drained via straight catheterization. A bivalve speculum was then placed within the vagina where the cervix was identified. The anterior lip of the cervix was grasped with a single-tooth tenaculum, the uterus was found to be very stenotic and required dilation before being able to sound the uterus. A diagnostic uterine manipulator was placed. My gloves were changed and my attention was turned to her abdomen. An umbilical incision was made, and a 5 mm trocar was placed under direct visualization without complications. Once intra-abdominal placement was confirmed the abdomen was insufflated with carbon dioxide gas. She was then placed in Trendelenburg and two additional 5 mm ports were placed in the left and right lower quadrants under direct visualization without complications. The above findings were noted. The omental adhesions were taken down from the anterior abdominal wall and removed from the uterus. The uterus was tortuous/tilted due to the adhesions to the anterior abdominal wall. The left fallopian tube was elongated and adhesed to the left pelvic side wall; therefore to easily perform the surgery, an additional 5mm tocar was placed in the left side of the abdomen. The adhesions in the left pelvic side wall involving the colon/tube were taken down carefully. The left tube was then elevated and the mesosalpinx was serially clamped, coagulated, transected using the LigaSure device until the proximal end of the fallopian tube was reached. The proximal end of the fallopian tube was cross clamped, coagulated and transected. The tube was then removed from the abdomen. The same procedure was then performed on the right side without any complications. Good hemostasis was noted. The ovaries were examined in detail and multiple small cysts were noted (PCOS); the two largest on each ovary was coagulated and drained using the LigaSure monopolar hook. Good hemostasis was noted. The uterine adhesions to the anterior abdominal wall were then taken down using the LigaSure device without complications. All instruments were removed from the abdomen. The insufflation was released and the trocars were removed. The 4 laparoscopic incision sites were reapproximated using 4-0 Monocryl and covered with Dermabond. The incisions were then infiltrated using 0.25% Ma
[2023-07-14] MEDS: fentaNYL CITRATE INJ (*CRX) 100 MCG/2 ML VIAL 25 MCG IV PUSH ×8 (09:18→09:54)
[2023-07-14] MEDS: oxyCODONE HCL (*CRX) 5 MG TAB IR PO (10:20)
[2023-07-15 13:51] LABS: Glucose Point of Care 124 mg/dl (65-105)
[2023-07-15 14:29] LABS: Glucose Point of Care 93 mg/dl (65-105)
== END 2023-07-14 10:47 | disposition home or self-care (01) ==
PROVIDERS: PCP Internal Medicine; Visit Provider Obstetrics & Gynecology
PROC: 0U5B8ZZ Destruction of Endometrium, Via Natural or Artificial Opening Endoscopic (ICD-10-PCS; CPT 58563; principal; 2023-07-14 07:30)
PROC: (CPT 49320; 2023-07-14 07:30)
DX: Z30.2 Encounter for sterilization (principal); N92.6 Irregular menstruation, unspecified; E28.2 Polycystic ovarian syndrome; N73.6 Female pelvic peritoneal adhesions (postinfective); D25.9 Leiomyoma of uterus, unspecified; N80.201 Endometriosis of right fallopian tube, unspecified depth; J44.9 Chronic obstructive pulmonary disease, unspecified; E78.00 Pure hypercholesterolemia, unspecified; Z86.73 Personal history of transient ischemic attack (TIA), and cerebral infarction without residual deficits; F17.210 Nicotine dependence, cigarettes, uncomplicated; E66.9 Obesity, unspecified; Z68.36 Body mass index [BMI] 36.0-36.9, adult; Z79.51 Long term (current) use of inhaled steroids; Z79.899 Other long term (current) drug therapy
CPT/HCPCS: 58661; 58662; 58558; 82948; 88302; 88305; A9270; J0330; J1100; J1885; J2250; J2405; J2704; J3010; J7030; J7120

== ENCOUNTER 2023-07-22 02:18 | Emergency (ER) | payer OTHER, SELFPAY ==
--- NOTE | ~2023-07-22 | CT_ITS ---
Non-contrast CT scan of the Abdomen and Pelvis Clinical indication: Abdominal pain Technique: 2.5 mm axial scans were obtained through the abdomen and pelvis without intravenous or or al contrast. Dose reduction technique was used on this scan by utilizing automated exposure control a nd iterative reconstruction technique. The dose-length product (DLP) was 761.39 mGy-cm. COMPARISON: 06/20/2014 Findings: Images through the lung bases reveal no abnormalities. There is no evidence of renal or ureteral calculi. The kidneys and the ureters are nondilated. The liver, spleen, pancreas, gallbladder, and adrenals appear normal. There is no aortic aneurysm. There is no evidence of bowel obstruction. Normal appendix. Images through the pelvis were performed. There is no evidence of ascites or lymphadenopathy. Urinary bladder unremarkable. No adnexal mass seen. Impression: No significant abnormality seen. Reviewed, dictated and finalized at [facility]. Impression: No significant abnormality seen.
--- NOTE | 2023-07-22 02:26 | ED.GIBLEED ---
HPI - GI Bleed General Chief complaint: Nausea/Vomiting/Diarrhea Stated complaint: Vomiting Blood Time Seen by Provider: 07/22/23 02:20 Source: patient Mode of arrival: ambulatory Limitations: no limitations History of Present Illness MD complaint: blood streaked emesis Onset (ago): minute(s) Severity: mild Relieving factors: none Exacerbating factors: none Associated symptoms: abdominal pain, nausea and vomiting Treatments Prior to Arrival: none Related Data Home Medications Medication Instructions Recorded Confirmed atorvastatin 20 mg tablet 20 mg PO DAILY 03/13/21 07/22/23 cholecalciferol (vitamin D3) 25 25 mcg PO DAILY 03/13/21 07/22/23 mcg (1,000 unit) capsule (Vitamin D3) duloxetine 30 mg capsule,delayed 30 mg PO DAILY 03/13/21 07/22/23 release metoprolol tartrate 25 mg tablet 25 mg PO BID 03/13/21 07/22/23 doxylamine succinate 25 mg tablet 25 mg PO HS 07/07/23 07/22/23 (Unisom (doxylamine)) dulaglutide 1.5 mg/0.5 mL 1.5 mg subcut WEEKLY 07/07/23 07/22/23 subcutaneous pen injector (Trulicity) Allergies Allergy/AdvReac Type Severity Reaction Status Date / Time amoxicillin AdvReac Mild RASH Verified 07/14/23 06:34 Review of Systems Review of Systems: All systems reviewed & are unremarkable except as noted in HPI and below Constitutional: Constitutional: Reports as per HPI, Denies chills and Denies fever(s) Eyes: Eyes: Reports as per HPI and Reports no additional eye complaints ENT: Reports system reviewed and no additional complaints, except as documented Cardiovascular: Cardiovascular: Reports as per HPI and Reports no additional cardiovascular complaints Respiratory: Respiratory: Reports as per HPI and Reports no additional respiratory complaints Gastrointestinal: Gastrointestinal: Reports as per HPI, Reports no additional gastrointestinal complaints, Reports abdominal pain (epigastric), Reports nausea and Reports vomiting (hematemesis) Genitourinary: Genitourinary: Reports no additional female genitourinary complaints and Reports as per HPI Musculoskeletal: Musculoskeletal: Reports no additional musculoskeletal complaints Integumentary/Breasts: Skin/Breast: Reports system reviewed and no additional complaints, except as docu Neurologic: Reports system reviewed and no additional complaints, except as documented Psychiatric: Psychiatric: Reports no additional psychiatric complaints Endocrine: Endocrine: Reports no additional endocrine complaints Hematologic/Lymphatic: Hematologic/Lymphatic: Reports no additional hematologic/lymphatic complaints Allergic/Immunologic: Allergic/Immunologic: Reports no additional allergic/immunologic complaints [facility] Past Medical History Medical History Asthma COPD (chronic obstructive pulmonary disease) Encounter for IUD removal mirena iud removal 02/25/2017 High cholesterol Migraines Panic attacks Stroke Tachycardia Tonsillectomy planned Surgical History Surgical History Delivery by section H/O gynecological procedure mirena IUD insertion & removal of IUD 01/28/2017 Mirena IUD removal and subsequent insertion of new device 2011 Family History Family History Mother Diabetes mellitus Family history of seizure disorder Father Family history of chronic obstructive pulmonary disease Grandparent Cerebrovascular accident Family history of heart disease in male family member before age 55 Diabetes mellitus Other Dementia Family history of transient ischemic attacks Heart disease Hypertension Hypoglycemia Malignant tumor of ovary Pulmonary embolism Social History Social History Smoking packs per day: 0.5 Smoking cigarettes per day: 10.0 Years smoked: 15 Smoking pack-years: 7.50 Smo
[2023-07-22 02:36] VITALS: BP 117/80; PULSE 87; RESP 20; TEMP 36.6; O2SAT 98
[2023-07-22 02:52] LABS: Basophils Absolute Auto 0.08 K/mm3 (0.00-0.10); Basophils Percent Auto 0.9 % (0.0-1.0); Eosinophils Absolute Auto 0.16 K/mm3 (0.02-0.50); Eosinophils Percent Auto 1.7 % (1.0-6.0); Hematocrit 42.3 % (35.0-49.0); Hemoglobin 14.2 g/dL (12.0-15.0); Immature Granulocyte Absolute 0.02 K/mm3 (0.00-0.00); Immature Granulocyte Percent A 0.2 % (0.0-0.0); Lymphocytes Absolute Auto 4.04 K/mm3 (1.10-4.50); Lymphocytes Percent Auto 43.9 % (18.0-42.0); Mean Corpuscular HGB Conc 33.6 g/dL (32.0-36.0); Mean Corpuscular Hemoglobin 30.9 pg (27.0-31.0); Mean Corpuscular Volume 92.2 fL (78.0-102.0); Mean Platelet Volume 9.8 fl (9.2-11.8); Monocytes Absolute Auto 0.57 K/mm3 (0.10-0.90); Monocytes Percent Auto 6.2 % (2.0-11.0); Neutrophils Absolute Auto 4.3 K/mm3 (1.7-7.2); Neutrophils Percent Auto 47.1 % (50.0-70.0); Platelet Count Result 365 K/mm3 (150-420); Red Blood Count 4.59 M/mm3 (4.20-5.40); White Blood Count 9.2 K/mm3 (4.8-10.8)
[2023-07-22] MEDS: PANTOPRAZOLE SODIUM IV 40 MG VIAL IV PUSH (03:02)
[2023-07-22] MEDS: SODIUM CHLORIDE 0.9% IV 1,000 ML 250 ML IV CONT (03:02)
[2023-07-22 03:09] LABS: Alanine Aminotransferase 40 U/L (14-59); Albumin Level 3.9 g/dL (3.4-5.0); Alkaline Phosphatase 72 U/L (46-116); Amylase 47 U/L (25-115); Anion Gap 13 mmol/L (8-16); Aspartate Amino Transferase 18 U/L (15-37); Bilirubin,Total 0.2 mg/dL (0.00-1.00); Blood Urea Nitrogen 16 mg/dL (7-18); Calcium 8.7 mg/dL (8.5-10.1); Carbon Dioxide 24 mmol/L (21-32); Chloride 108 mmol/L (98-108); Estimated CRCL calculation 80 ml/min; Estimated Glomerular Filt Rate > 60; Glucose 96 mg/dL (70-99); Lipase 99 U/L (16-77); Osmolality Calculated 301 mOsm/kg (285-295); Potassium 3.6 mmol/L (3.5-5.1); Sodium 145 mmol/L (136-145); Total Protein 7.4 g/dL (6.4-8.2)
[2023-07-22 03:13] LABS: Occult Blood Negative (Negative)
--- NOTE | 2023-07-22 03:40 | PC.NURSE ---
Pt calling and wanting something for pain and cramping in her abd. No n/v since arrival to ER, no noted distress. Abd is soft and tender on palpation. ERP called for orders. Order obtained for Estephania.
[2023-07-22] MEDS: HYOSCYAMINE SULFATE 0.125 MG TABLET PO (03:56)
[2023-07-22] MEDS: ONDANSETRON INJ 4 MG/2 ML VIAL IV PUSH (03:56)
[2023-07-22 04:01] VITALS: BP 105/74; PULSE 78; RESP 18; O2SAT 98
--- NOTE | 2023-07-22 04:15 | PC.NURSE ---
Pt calling RN and wanting to show pictures on her phone again of emesis that had some blood in it that she took at home. Pt reassured again that tests are normal thus far and educated on use of Ibuprofen and irritation to lining of abd. VSS, pt tearful and anxious.
--- NOTE | 2023-07-22 04:30 | PC.NURSE ---
Pt called stating her abd has some cramping and she is unable to relax. Order obtained for Ativan.
[2023-07-22] MEDS: LORazepam INJ (*CRX) 2 MG/ML VIAL 1 MG IV PUSH (04:43)
--- NOTE | 2023-07-22 04:55 | PC.NURSE ---
Pt called and states she is still having abd cramping and pain. Order obtained for pain med at this time. Lights dimmed, pt reassured again about postop procedure and healing times from surgery that was performed only 1 week ago.
[2023-07-22] MEDS: fentaNYL CITRATE INJ (*CRX) 100 MCG/2 ML VIAL IV PUSH (05:05)
[2023-07-22 05:28] VITALS: BP 110/71; PULSE 74; RESP 18; O2SAT 97
--- NOTE | 2023-07-22 05:28 | PC.NURSE ---
Pt now sleeping, RR even and nonlabored, resting comfortably. Awaiting CT results. VSS, call roche at side.
[2023-07-22 06:32] VITALS: BP 132/68; PULSE 80; RESP 20; TEMP 37; O2SAT 97
== END 2023-07-22 07:02 | disposition home or self-care (01) ==
PROVIDERS: Emergency Provider Emergency Medicine; PCP Internal Medicine
DX: K92.2 Gastrointestinal hemorrhage, unspecified (principal); J44.9 Chronic obstructive pulmonary disease, unspecified; F17.210 Nicotine dependence, cigarettes, uncomplicated
CPT/HCPCS: 36415; 74176; 80053; 82150; 82272; 83690; 85025; 96361; 96374; 96375; 99284; A9270; C9113; J2060; J2405; J3010; J7030

== ENCOUNTER 2023-07-29 10:29 | Outpatient (CLI) | payer OTHER, SELFPAY ==
[2023-07-29 10:40] LABS: Basophils Absolute Auto 0.06 K/mm3 (0.00-0.10); Basophils Percent Auto 0.6 % (0.0-1.0); Eosinophils Absolute Auto 0.16 K/mm3 (0.02-0.50); Eosinophils Percent Auto 1.6 % (1.0-6.0); Hematocrit 40.4 % (35.0-49.0); Hemoglobin 13.9 g/dL (12.0-15.0); Immature Granulocyte Absolute 0.02 K/mm3 (0.00-0.00); Immature Granulocyte Percent A 0.2 % (0.0-0.0); Lymphocytes Percent Auto 38.3 % (18.0-42.0); Mean Corpuscular HGB Conc 34.4 g/dL (32.0-36.0); Mean Corpuscular Hemoglobin 31.8 pg (27.0-31.0); Mean Corpuscular Volume 92.4 fL (78.0-102.0); Mean Platelet Volume 10.2 fl (9.2-11.8); Monocytes Absolute Auto 0.78 K/mm3 (0.10-0.90); Monocytes Percent Auto 7.7 % (2.0-11.0); Neutrophils Absolute Auto 5.3 K/mm3 (1.7-7.2); Neutrophils Percent Auto 51.6 % (50.0-70.0); Platelet Count Result 319 K/mm3 (150-420); Red Blood Count 4.37 M/mm3 (4.20-5.40); Red Cell Distribution Width 12.9 % (11.6-14.4); White Blood Count 10.2 K/mm3 (4.8-10.8)
[2023-07-29 11:04] LABS: Alanine Aminotransferase 53 U/L (14-59); Albumin Level 3.9 g/dL (3.4-5.0); Alkaline Phosphatase 76 U/L (46-116); Amylase 32 U/L (25-115); Anion Gap 9 mmol/L (8-16); Aspartate Amino Transferase 18 U/L (15-37); Bilirubin,Total 0.5 mg/dL (0.00-1.00); Blood Urea Nitrogen 16 mg/dL (7-18); Calcium 9.3 mg/dL (8.5-10.1); Carbon Dioxide 27 mmol/L (21-32); Chloride 104 mmol/L (98-108); Estimated Glomerular Filt Rate 55; Glucose 107 mg/dL (70-99); Lipase 58 U/L (16-77); Osmolality Calculated 291 mOsm/kg (285-295); Potassium 4.2 mmol/L (3.5-5.1); Sodium 140 mmol/L (136-145); Total Protein 6.7 g/dL (6.4-8.2)
== END 2023-07-29 10:30 | disposition home or self-care (01) ==
LOC: CHSLAB 10:31
PROVIDERS: PCP Internal Medicine; Visit Provider Internal Medicine
DX: K85.90 Acute pancreatitis without necrosis or infection, unspecified (principal)
CPT/HCPCS: 36415; 80053; 82150; 83690; 85025

== ENCOUNTER 2023-07-30 00:13 | Day surgery (SDC) | payer OTHER, SELFPAY ==
[2023-07-25 15:28] VITALS: BMI 35.4
[2023-07-30 07:05] VITALS: BP 103/69; PULSE 75; RESP 18; TEMP 36.3; O2SAT 100; BMI 35.8
[2023-07-30] MEDS: LACTATED RINGERS 1,000 ML 150 ML IV CONT (07:25)
--- NOTE | 2023-07-30 08:21 | PM.HPGS ---
History of Present Illness History of Present Illness Consent: Risks, benefits, and alternatives have been discussed and questions answered. Patient agrees to proceed with procedure. Chief complaint: Hematemesis Narrative: Keeley Monaco is a 37 year old female with pre-BM and overweight who was using trulicity then had nausea and one episode of blood with emesis, on protonix now, CT scan normal, hgb normal, mild elevated lipase but normal liver enzymes, still some nausea and epigastric discomfort, never had egd. Review of Systems Constitutional: Constitutional: Denies headache(s) and Denies weakness Eyes: Eyes: Denies blurry vision ENT: Reports Normal hearing present, Denies headache(s) and Denies neck pain Cardiovascular: Cardiovascular: Denies chest pain and Denies dyspnea Respiratory: Respiratory: Denies dyspnea Gastrointestinal: Gastrointestinal: Reports no additional gastrointestinal complaints Genitourinary: Genitourinary: Denies dysuria Musculoskeletal: Musculoskeletal: Denies neck pain Integumentary/Breasts: Skin/Breast: Denies dry skin Neurologic: Reports Normal hearing present, Denies headache(s) and Denies weakness Psychiatric: Psychiatric: Denies anxiety Endocrine: Endocrine: Denies change in body appearance Hematologic/Lymphatic: Hematologic/Lymphatic: Denies easy bleeding Allergic/Immunologic: Allergic/Immunologic: Denies urticaria PMFSH Past Medical History Medical History (Updated 07/30/23 @ 08:22 by Wilmar Jacobs MD) Asthma COPD (chronic obstructive pulmonary disease) Encounter for IUD removal mirena iud removal 02/25/2017 Epigastric pain High cholesterol Migraines Panic attacks Stroke Tachycardia Tonsillectomy planned Surgical History Surgical History Delivery by section H/O gynecological procedure mirena IUD insertion & removal of IUD 01/28/2017 Mirena IUD removal and subsequent insertion of new device 2011 H/O gynecological procedure laparoscopic unilateral ovarian cystectomy, bilateral salpingectomy, HSC/ D&C, and possible myomectomy. Family History Family History Mother Diabetes mellitus Family history of seizure disorder Father Family history of chronic obstructive pulmonary disease Grandparent Cerebrovascular accident Family history of heart disease in male family member before age 55 Diabetes mellitus Other Dementia Family history of transient ischemic attacks Heart disease Hypertension Hypoglycemia Malignant tumor of ovary Pulmonary embolism Social History Social History Smoking packs per day: 0.5 Smoking cigarettes per day: 10.0 Years smoked: 15 Smoking pack-years: 7.50 Smoking status: Former smoker Tobacco type: cigarettes Second hand tobacco smoke exposure: No Smoking end date: 11/24/03 Alcohol intake: current Drinks per week: 3 Alcohol use details: occasional prior to pancreatitis Substance use: never Substance use type: does not use Lack of Transportation: YES Lack of Food: Sometimes True Current Housing: I Do Not Have Housing Concerned About Future Housing: Decline to Answer Difficulty Paying Gas/Electric Bills: Decline to Answer Difficulty Paying for Meds: Decline to Answer Currently Unemployed: Decline to Answer Education: Bachelor's Degree Difficulty w/ Childcare or Family Care: No Living arrangements: with friend(s) Additional living arrangements comments: lives with fiance Occupation/Education: occupation Gender identity (if verbalized by the patient): Female Sexual Orientation (if Verbalized by the Patient): Straight or Heterosexual Spiritual care concerns: No Meds Home Medications and Allergies Home Medications Medication Instructions Recorded Confirmed Type atorvastatin 20 mg
--- NOTE | 2023-07-30 08:22 | WPDANESEPPF ---
Anes - Initial Pre Proc Eval Procedure: Operation Date: 07/30/23 08:30 Proposed Procedures p Esophagogastroduodenoscopy EGD - Wilmar Jacobs MD Date/Time: 07/30/23 08:22 Surgeon: Wilmar Jacobs MD Pre Op Diagnosis: Hematemesis Patient Data Age: 37 Gender: F Height: 1.57 m Weight: 88.9 kg Last Vital Signs Temp 97.4 F L 07/30/23 07:05 Pulse 75 07/30/23 07:05 Resp 18 07/30/23 07:05 BP 103/69 07/30/23 07:05 Pulse Ox 100 07/30/23 07:05 O2 Del Method Room Air 07/30/23 07:05 Allergies Allergy/AdvReac Type Severity Reaction Status Date / Time aspirin AdvReac Severe vomitting Verified 07/30/23 07:11 ibuprofen AdvReac Severe vomitting Verified 07/30/23 07:11 amoxicillin AdvReac Mild RASH Verified 07/30/23 07:11 Home Medications Medication Instructions Recorded Confirmed Type atorvastatin 20 mg tablet 20 mg PO DAILY 03/13/21 07/30/23 History cholecalciferol (vitamin D3) 25 25 mcg PO DAILY 03/13/21 07/30/23 History mcg (1,000 unit) capsule (Vitamin D3) duloxetine 30 mg capsule,delayed 30 mg PO DAILY 03/13/21 07/30/23 History release metoprolol tartrate 25 mg tablet 25 mg PO BID 03/13/21 07/30/23 History doxylamine succinate 25 mg tablet 25 mg PO HS 07/07/23 07/30/23 History (Unisom (doxylamine)) docusate sodium 100 mg capsule 100 mg PO BID #60 caps 07/14/23 07/30/23 Rx (Colace) ondansetron 4 mg disintegrating 4 mg PO Q6H PRN nausea and 07/14/23 07/30/23 Rx tablet vomiting #20 tabs albuterol sulfate 90 mcg/actuation 1 puff inhalation PRN PRN 07/25/23 07/30/23 History aerosol inhaler Shortness Of Breath cetirizine 10 mg tablet 10 mg PO DAILY 07/25/23 07/30/23 History pantoprazole 40 mg tablet,delayed 40 mg PO BID 07/25/23 07/30/23 History release (Protonix) Patient hx anesthesia problems: none Family hx anesthesia problems: none Results Review: All pre-operative results and documents have been reviewed as part of the pre-operative evaluation. [facility] Past Medical History Medical History Asthma COPD (chronic obstructive pulmonary disease) Encounter for IUD removal mirena iud removal 02/25/2017 High cholesterol Migraines Panic attacks Stroke Tachycardia Tonsillectomy planned Surgical History Surgical History Delivery by section H/O gynecological procedure mirena IUD insertion & removal of IUD 01/28/2017 Mirena IUD removal and subsequent insertion of new device 2011 H/O gynecological procedure laparoscopic unilateral ovarian cystectomy, bilateral salpingectomy, HSC/ D&C, and possible myomectomy. Family History Family History Mother Diabetes mellitus Family history of seizure disorder Father Family history of chronic obstructive pulmonary disease Grandparent Cerebrovascular accident Family history of heart disease in male family member before age 55 Diabetes mellitus Other Dementia Family history of transient ischemic attacks Heart disease Hypertension Hypoglycemia Malignant tumor of ovary Pulmonary embolism Social History Social History Smoking packs per day: 0.5 Smoking cigarettes per day: 10.0 Years smoked: 15 Smoking pack-years: 7.50 Smoking status: Former smoker Tobacco type: cigarettes Second hand tobacco smoke exposure: No Smoking end date: 11/24/03 Alcohol intake: current Drinks per week: 3 Alcohol use details: occasional prior to pancreatitis Substance use: never Substance use type: does not use Lack of Transportation: YES Lack of Food: Sometimes True Current Housing: I Do Not Have Housing Concerned About Future Housing: Decline to Answer Difficulty Paying Gas/Electric Bills: Decline to Answer Difficulty Paying for Meds: Decline to Answ
[2023-07-30] MEDS: BENZOCAINE (*SP) 60 ML SPRAY CAN (HURRICAINE) 1 SPRAY MUCOUS MEM (08:26)
[2023-07-30 08:41] VITALS: BP 105/69; PULSE 79; RESP 21; O2SAT 98
[2023-07-30 08:51] VITALS: BP 105/69; PULSE 69; RESP 24; O2SAT 98
[2023-07-30 09:01] VITALS: BP 121/87; PULSE 65; RESP 17; O2SAT 98
== END 2023-07-30 09:07 | disposition home or self-care (01) ==
PROVIDERS: PCP Internal Medicine; Visit Provider Internal Medicine Gastroenterology
PROC: 0DJ08ZZ Inspection of Upper Intestinal Tract, Via Natural or Artificial Opening Endoscopic (ICD-10-PCS; CPT 43235; principal; 2023-07-30 08:30)
DX: K29.70 Gastritis, unspecified, without bleeding (principal); K31.84 Gastroparesis; J44.9 Chronic obstructive pulmonary disease, unspecified; E78.00 Pure hypercholesterolemia, unspecified; R00.0 Tachycardia, unspecified; Z86.73 Personal history of transient ischemic attack (TIA), and cerebral infarction without residual deficits; Z87.891 Personal history of nicotine dependence; E66.9 Obesity, unspecified; Z68.35 Body mass index [BMI] 35.0-35.9, adult
CPT/HCPCS: 43239; 88305; J2704; J7120

== ENCOUNTER 2023-08-12 08:29 | Outpatient (CLI) | payer OTHER, SELFPAY ==
--- NOTE | ~2023-08-12 | NM_ITS ---
EXAM: NM gastric emptying study DATE: 08/12/2023 13:25 INDICATION: Epigastric pain TECHNIQUE: A gastric emptying study was performed using the methodology of Martín BECKHAM, et al. J Nucl Med 2007; 48:568-572. The patient was given a meal consisting of 2 scrambled eggs labeled with 0.972 mCi Tc-99m sulfur colloid, 2 slices of toast, two packages of jam, and approximately 120 mL of water . Simultaneous anterior and posterior 1-min images of the abdomen were obtained with the patient supi ne at multiple time points over a total period of 4 hours. The geometric mean of anterior and posteri or views was determined, and the percentage retention was calculated for each time point. COMPARISON: None. FINDINGS: Gastric retention of the radiotracer-labeled meal was 52%, 13%, and 1% at the 1-hour, 2-hour, and 4-h our time points, respectively. With this technique, apparent rapid gastric emptying is suggested by < 30% gastric retention at 1 hour. Delayed gastric emptying is defined by gastric retention of >90% at 1 hour, >60% retention at 2 hours, or >10% retention at 4 hours. IMPRESSION: 1. Normal gastric emptying. Reviewed, dictated and finalized at location A. IMPRESSION: 1. Normal gastric emptying.
== END 2023-08-12 08:30 | disposition home or self-care (01) ==
LOC: ANHIMG 08:30
PROVIDERS: PCP Internal Medicine; Visit Provider Internal Medicine Gastroenterology
DX: R10.13 Epigastric pain (principal); R11.0 Nausea
CPT/HCPCS: 78264; A9541

== ENCOUNTER 2023-09-22 01:18 | Day surgery (SDC) | payer OTHER, SELFPAY ==
[2023-09-10 12:47] VITALS: BMI 35.1
--- NOTE | 2023-09-10 12:55 | PC.NURSE ---
Report to the Outpatient Waiting Room, entrance under the green pavilion located off [facility], at time 6:00 on date 09/22/23. Planned Procedure Time: 7:30. Time changes happen often and if your time is changed the preop area will call you the afternoon before. - You and your visitor will be asked to self-screen and do not enter if you have any COVID symptoms. - A mask is optional within the hospital at this time. Patients may have clear liquids (water, carbonated beverages, clear teas, apple juice) until 3 hours prior to surgery with a maximum of 20 ounces. - No food from midnight until time of surgery Take the following medications with a SIP of water the morning of surgery: METOPROLOL, INHALER IF NEEDED DO NOT STOP ANY OF YOUR OTHER PRESCRIPTION MEDICATIONS PRIOR TO SURGERY ?EXCEPT THE FOLLOWING Medications to discontinue per physician: VITAMINS Date to take last dose: 09/18/23 Please no make-up, nail upper sorbian, hairspray, perfume, deodorant, or body powder the day of surgery. No jewelry (including any body piercings) or valuables the day of surgery, leave them at home. Please take a shower or bath the night before, or the morning of, surgery with an antibacterial soap. Wear comfortable, loose fitting clothing. - Jewelry must be removed prior to entering the operating room. Rings and piercings that are not removed may be cut off. - The hospital will not accept responsibility for valuables. - Please leave all valuables, including medications, at home the day of surgery. If you are going home after surgery, a licensed [employer] company truck driver must drive you home. - NO public transportation without another adult if you receive anesthesia. - We recommend that an adult stay with you for 24 hours following discharge. - We also recommend that you do not drive, make important decision, drink alcoholic beverages, or take any drugs that were not prescribed by your health care provider for at least 24 hours after your discharge time. Follow any additional instructions given to you from your surgeon. If you or anyone in your household have experienced Covid symptoms in the past week, please notify your surgeon or the nurse liaison at the phone number below for possible testing. Telephone instructions given to PT - LUISITO GUTIERREZ and asked if any additional questions and then verbalized understanding. Patient advised to call surgeon office or pre surgery nurse liaison [phone] if any additional questions.
--- NOTE | 2023-09-21 14:06 | PM.IMHP ---
H&P: HPI History of Present Illness Date/Time: 09/21/23 14:06 Chief Complaint: pelvic pain Narrative: Keeley is a 37yo P1002 who presents for scheduled surgery. She is s/p Laparoscopic bilateral salpingectomy, bilateral ovarian cyst drainage, hysteroscopy with D&C on 07/14/23 for pelvic pain and AUB. During surgery, (and confirmed on final pathology) endometriosis and adhesions were noted. She continues to have heavy and painful periods and pelvic pain. Wanting to proceed with hysterectomy. Review of Systems Constitutional: Constitutional: Denies chills, Denies fever(s) and Denies headache(s) Eyes: Eyes: Denies change in vision ENT: Denies dizziness and Denies headache(s) Cardiovascular: Cardiovascular: Denies chest pain and Denies dyspnea Respiratory: Respiratory: Denies cough and Denies dyspnea Gastrointestinal: Gastrointestinal: Denies abdominal pain and Denies change in stool character Genitourinary: Genitourinary: Reports abnormal menses, Reports menorrhagia, Reports dysmenorrhea, Reports pelvic pain, Denies vaginal discharge, Denies vaginal odor and Denies vaginal pruritus Neurologic: Denies dizziness and Denies headache(s) Psychiatric: Psychiatric: Denies anxiety and Denies depression [facility] Past Medical History Medical History (Updated 07/30/23 @ 08:32 by Wilmar Jacobs MD) Asthma COPD (chronic obstructive pulmonary disease) Encounter for IUD removal mirena iud removal 02/25/2017 Epigastric pain High cholesterol Migraines Nausea Panic attacks Stroke Tachycardia Tonsillectomy planned Surgical History Surgical History Delivery by section H/O gynecological procedure mirena IUD insertion & removal of IUD 01/28/2017 Mirena IUD removal and subsequent insertion of new device 2011 H/O gynecological procedure laparoscopic unilateral ovarian cystectomy, bilateral salpingectomy, HSC/ D&C, and possible myomectomy. Family History Family History Mother Diabetes mellitus Family history of seizure disorder Father Family history of chronic obstructive pulmonary disease Grandparent Cerebrovascular accident Family history of heart disease in male family member before age 55 Diabetes mellitus Other Dementia Family history of transient ischemic attacks Heart disease Hypertension Hypoglycemia Malignant tumor of ovary Pulmonary embolism Social History Social History Smoking packs per day: 0.5 Smoking cigarettes per day: 10.0 Years smoked: 10 Smoking pack-years: 5.00 Smoking status: Current every day smoker Tobacco type: cigarettes Second hand tobacco smoke exposure: No Smoking end date: 11/24/03 Alcohol intake: current Drinks per week: 4 Alcohol use details: occasional prior to pancreatitis Substance use: never Substance use type: does not use Lack of Transportation: YES Lack of Food: Sometimes True Current Housing: I Do Not Have Housing Concerned About Future Housing: Decline to Answer Difficulty Paying Gas/Electric Bills: Decline to Answer Difficulty Paying for Meds: Decline to Answer Currently Unemployed: Decline to Answer Education: Bachelor's Degree Difficulty w/ Childcare or Family Care: No Living arrangements: with family Additional living arrangements comments: lives with fiance Occupation/Education: occupation Gender identity (if verbalized by the patient): Female Sexual Orientation (if Verbalized by the Patient): Straight or Heterosexual Spiritual care concerns: No Meds Home Medications and Allergies Home Medications Medication Instructions Recorded Confirmed Type atorvastatin 20 mg tablet 20 mg PO DAILY 03/13/21 09/10/23 History cholecalciferol (vitamin D3) 25 25 mcg PO DAILY 03/13/21 09/10/23 History mcg (1,000 unit) capsule (Vitamin
[2023-09-22] VITALS (9 sets, daily range): BP systolic 92–138; BP diastolic 49–86; PULSE 72–93; RESP 16–20; TEMP 35.8–36.8; O2SAT 94–100
[2023-09-22] MEDS: ACETAMINOPHEN 500 MG TABLET 1000 MG PO ×3 (06:29→17:58)
[2023-09-22] MEDS: KETOROLAC 15 MG/ML VIAL (*BKC) IV PUSH (06:29)
[2023-09-22 06:44] LABS: Glucose Point of Care 111 mg/dl (65-105)
--- NOTE | 2023-09-22 07:09 | WPDANESEPPF ---
Anes - Initial Pre Proc Eval Procedure: Operation Date: 09/22/23 07:30 Proposed Procedures p Robotic Assisted Total Laparoscopic Hysterectomy, Possible Total Abdominal Hysterectomy - Perla Browning MD s Cystoscopy - Perla Browning MD Date/Time: 09/22/23 07:09 Surgeon: Perla Browning MD Pre Op Diagnosis: endometriosis, Pelvic Pain Patient Data Age: 37 Gender: F Height: 1.57 m Weight: 87.1 kg Allergies Allergy/AdvReac Type Severity Reaction Status Date / Time amoxicillin Allergy Mild RASH Verified 09/10/23 12:45 Home Medications Medication Instructions Recorded Confirmed Type atorvastatin 20 mg tablet 20 mg PO DAILY 03/13/21 09/10/23 History cholecalciferol (vitamin D3) 25 25 mcg PO DAILY 03/13/21 09/10/23 History mcg (1,000 unit) capsule (Vitamin D3) duloxetine 30 mg capsule,delayed 30 mg PO HS 03/13/21 09/10/23 History release metoprolol tartrate 25 mg tablet 25 mg PO BID 03/13/21 09/10/23 History doxylamine succinate 25 mg tablet 25 mg PO HS 07/07/23 09/10/23 History (Unisom (doxylamine)) docusate sodium 100 mg capsule 100 mg PO BID #60 caps 07/14/23 09/10/23 Rx (Colace) ondansetron 4 mg disintegrating 4 mg PO Q6H PRN nausea and 07/14/23 09/10/23 Rx tablet vomiting #20 tabs albuterol sulfate 90 mcg/actuation 1 puff inhalation PRN PRN 07/25/23 09/10/23 History aerosol inhaler Shortness Of Breath cetirizine 10 mg tablet 10 mg PO DAILY 07/25/23 09/10/23 History pantoprazole 40 mg tablet,delayed 40 mg PO BID #60 tabs 09/05/23 09/10/23 Rx release (Protonix) Laboratory Tests 09/22/23 06:31 POC Capillary Glucose 111 H mg/dl (65-105) Patient hx anesthesia problems: none Family hx anesthesia problems: none Results Review: All pre-operative results and documents have been reviewed as part of the pre-operative evaluation. [facility] Past Medical History Medical History Asthma COPD (chronic obstructive pulmonary disease) Encounter for IUD removal mirena iud removal 02/25/2017 Epigastric pain High cholesterol Migraines Nausea Panic attacks Stroke Tachycardia Tonsillectomy planned Surgical History Surgical History Delivery by section H/O gynecological procedure mirena IUD insertion & removal of IUD 01/28/2017 Mirena IUD removal and subsequent insertion of new device 2011 H/O gynecological procedure laparoscopic unilateral ovarian cystectomy, bilateral salpingectomy, HSC/ D&C, and possible myomectomy. Family History Family History Mother Diabetes mellitus Family history of seizure disorder Father Family history of chronic obstructive pulmonary disease Grandparent Cerebrovascular accident Family history of heart disease in male family member before age 55 Diabetes mellitus Other Dementia Family history of transient ischemic attacks Heart disease Hypertension Hypoglycemia Malignant tumor of ovary Pulmonary embolism Social History Social History Smoking packs per day: 0.5 Smoking cigarettes per day: 10.0 Years smoked: 10 Smoking pack-years: 5.00 Smoking status: Current every day smoker Tobacco type: cigarettes Second hand tobacco smoke exposure: No Smoking end date: 11/24/03 Alcohol intake: current Drinks per week: 4 Alcohol use details: occasional prior to pancreatitis Substance use: never Substance use type: does not use Lack of Transportation: YES Lack of Food: Sometimes True Current Housing: I Do Not Have Housing Concerned About Future Housing: Decline to Answer Difficulty Paying Gas/Electric Bills: Decline to Answer Difficulty Paying for Meds: Decline to Answer Currently Unemployed: Decline to Answer Education: Bachelor's Degree [employer]
--- NOTE | 2023-09-22 07:11 | WPDHPUPDATE1 ---
History and Physical Update Update Date/Time: 09/22/23 07:11 History and Physical has been reviewed, including an updated exam of the patient. There are NO changes in the patient's condition. Risks, benefits, and alternatives have been discussed and questions answered. Patient agrees to proceed with RA-TLH, cystoscopy, possible ISMAEL.
[2023-09-22] MEDS: ceFAZolin 2 GM/D5W 50 ML 2 GM/50 ML BAG IVPB (07:30)
[2023-09-22] MEDS: LACTATED RINGERS 1,000 ML 30 ML IV CONT ×2 (09:30)
--- NOTE | 2023-09-22 09:32 | W.PM.PROC2 ---
Procedure Note - Detailed Date of Procedure 09/22/23 Pre-op Diagnosis endometriosis, Pelvic Pain Post-op Diagnosis Same Procedure Performed Robotic assisted total laparoscopic hysterectomy with cystoscopy Surgeon Perla Browning MD Income Tax Adjuster Itz Anesthesia General and Local (1% lido w/ epi: 20cc) Findings Uterus sounded to 12cm, normal cervix. Normal ovaries with small simple/follicular cysts. H/o bilateral salpingectomy. Bladder adhesions to the lower uterine segment. The uterus was adhered to the left pelvic side wall (all adhesions taken down). Good hemostasis at end of case. Uterus: 135.7g. Normal bladder that filled without issues; no defects or masses. Bilateral ureteral efflux noted. Description of Procedure Keeley was taken to the operating room where she was placed under general anesthesia without issues. She received 2 g Ancef. She was then prepped and draped in the usual sterile fashion in the dorsal lithotomy position with her legs in low Orlin stirrups and her arms tucked at her side, with a strap over her chest. A time-out was performed. My attention was turned down below where a Santoyo catheter was placed. A bivalve speculum was placed within the vagina. The cervix was easily identified and the anterior lip of the cervix was grasped with single-tooth tenaculum. The uterus was then sounded to 12cm. The cervix was serially dilated to allow for the KENNETH uterine manipulator; which was placed w/o issue (10cm tip with 2.5cm cervical ring). My gloves were changed and attention was then turned to the abdomen. A supraumbilical incision was made, and a 5 mm trocar was placed under direct visualization. Once intra-abdominal placement was confirmed, the abdomen was insufflated with carbon dioxide gas. An abdominal survey was performed and the above findings were noted. Two additional ports were placed on the right side and one port on the left side under direct visualization without issues. The umbilical port was switched out for a robotic port under direct visualization. The patient was then placed in deep Trendelenburg, with the legs slightly lowered. The robot was then docked. The instruments were placed intra-abdominally under direct visualization. I then un-scrubbed and went to the robotic console. I then started my hysterectomy on the right side. The ureter was easily identified transperitoneally and well out of the surgical field. The round ligament was clamped, coagulated, and transected. The uterine ovarian artery was then serially clamped, coagulated, and transected with good hemostasis. The broad ligament was then dissected anteriorly and posteriorly skeletonizing the uterine artery. The bladder adhesions were slowly and carefully take down and the bladder flap was then developed on the right side and carried around the left, anteriorly. The uterine artery was then serially clamped and coagulated. Once the vessel was adequately coagulated, it was then transected with good hemostasis. The same procedure was then performed on the left side without complications. The uterus was more adhered to the left pelvic side wall, but those adhesions were easily taken down and good hemostasis was noted. The uterus was noted to be devascularized. The bladder flap was verified out of the surgical field and the colpotomy was started anteriorly and continued in a clockwise fashion until the uterus was released. The uterus was attempted to be removed from the abdomen via the vagina but was too wide. The uterus was cut in half and each half was removed from the vagina without complications. The vaginal cuff had small bleeders that were made hemostatic without complications. The vaginal cuff was then reapproximated using a 0 V lock suture. The pelvis was then copiously irrigated and suctioned free of all clots and debris. Good hemostasis was noted. All instruments were removed from the abdomen and the robot was undocked. I then scrubbed back in and verified
[2023-09-22] MEDS: LIDO 1%/EPINEPHRINE 1:100,000 20 ML VIAL 50 ML INFILTRATE (09:38)
[2023-09-22] MEDS: fentaNYL CITRATE INJ (*CRX) 100 MCG/2 ML VIAL 25 MCG IV PUSH ×8 (09:42→10:26)
[2023-09-22 09:44] LABS: Glucose Point of Care 200 mg/dl (65-105)
--- NOTE | 2023-09-22 10:39 | PC.NURSE ---
This patient, Keeley Monaco, was received from PACU on 09/22/23 at 1039. Patient/family oriented to unit policies and routines
[2023-09-22] MEDS: KETOROLAC 30 MG/ML VIAL (*BKC) IV PUSH ×2 (11:06→17:59)
[2023-09-22] MEDS: LACTATED RINGERS 1,000 ML 100 ML IV CONT (11:06)
[2023-09-22] MEDS: oxyCODONE HCL (*CRX) 5 MG TAB IR 10 MG PO ×2 (11:51→17:59)
[2023-09-22] MEDS: HYDROmorphone HCL INJ (*CRX) 1 MG/ML SYR 0.5 MG IV PUSH ×4 (13:02→21:40)
[2023-09-22] MEDS: PANTOPRAZOLE 40 MG TABLET PO (17:57)
[2023-09-22] MEDS: DOCUSATE SODIUM 100 MG CAPSULE PO (17:57)
[2023-09-22] MEDS: CHOLECALCIFEROL 1,000 UNITS TABLET 1000 UNITS PO (21:34)
[2023-09-22] MEDS: ATORVASTATIN 20 MG TABLET PO (21:35)
[2023-09-22] MEDS: DULoxetine HCL 30 MG CAPSULE.DR PO (21:35)
[2023-09-23 00:30] VITALS: BP 98/62; PULSE 69; RESP 16; TEMP 35.8; O2SAT 98
[2023-09-23] MEDS: ACETAMINOPHEN 500 MG TABLET 1000 MG PO ×2 (00:34→05:54)
[2023-09-23] MEDS: SIMETHICONE 80 MG TAB.CHEW PO ×3 (00:37→06:45)
[2023-09-23 04:19] LABS: Basophils Percent Auto 0.2 % (0.2-1.2); Hematocrit 36.1 % (37.0-47.0); Hemoglobin 11.8 g/dL (12.0-15.0); Immature Granulocyte Absolute 0.08 K/mm3 (0.00-0.031); Immature Granulocyte Percent A 0.4 % (0-0.5); Lymphocytes Percent Auto 12.2 % (18.3-44.2); Mean Corpuscular HGB Conc 32.7 g/dl (32-36); Mean Corpuscular Volume 94.8 fl (80-100); Mean Platelet Volume 10.2 fl (7.4-10.4); Monocytes Absolute Auto 1.6 K/mm3 (0.1-0.6); Monocytes Percent Auto 8.3 % (2.6-8.5); Neutrophils Absolute Auto 14.9 K/mm3 (1.3-6.7); Neutrophils Percent Auto 78.9 % (45.5-73.1); Platelet Count Result 260 k/mm3 (150-375); Red Blood Count 3.81 M/mm3 (4.2-5.4); Red Cell Distribution Width 13.2 % (11.5-14.5); White Blood Count 18.9 K/mm3 (4.5-10.0)
[2023-09-23] MEDS: IBUPROFEN 600 MG TABLET PO (04:27)
[2023-09-23 04:35] LABS: Anion Gap 5 mmol/L (8-16); Blood Urea Nitrogen 11 mg/dL (7-17); Calcium 8.7 mg/dL (8.4-10.2); Carbon Dioxide 25 mmol/L (22-30); Chloride 104 mmol/L (98-107); Estimated CRCL calculation 112 ml/min; Estimated Glomerular Filt Rate > 60; Glucose 119 mg/dL (65-110); Potassium 3.7 mmol/L (3.4-5.0); Sodium 134 mmol/L (137-145)
[2023-09-23 04:57] VITALS: BP 92/51; PULSE 74; RESP 16; TEMP 36; O2SAT 100
--- NOTE | 2023-09-23 06:08 | PM.GYNPNOP ---
BEAD INSPECTOR - A/P Assessment and plan (1) S/P laparoscopic hysterectomy: Code(s): Z90.710 - Acquired absence of both cervix and uterus Status: Acute Postoperative Procedures: Procedures Operation Date: 09/22/23 07:30 Actual Procedure Side Surgeon p Robotic Assisted Total Laparoscopic Hysterectomy Not Applicable Perla Browning MD s Cystoscopy Not Applicable Perla Browning MD Postoperative day: 1 Postoperative status: doing well Postoperative plan: routine post-op care and discharge Time Spent With Patient Time: Total time spent is greater than 50% in coordination of care (as documented) at patient's floor/unit and/or counseling patient: Time with patient: less than 15 minutes BEAD INSPECTOR- PN:Subj Post-Op Subjective Date/time seen: 09/23/23 07:08 Interval history: POD#1 Keeley reports doing well today. No issues overnight, her BP was a little on the low side but she's asymptomatic. Her pain is controlled with PO meds. She has tolerated regular diet. She denies any vaginal bleeding. She has voided. She has passed flatus. She has ambulated and denies any symptoms of anemia. Review of Systems Review of Systems: All systems reviewed & are unremarkable except as noted in HPI and below (HPI) Constitutional: Constitutional: Denies chills, Denies fever(s) and Denies headache(s) Eyes: Eyes: Denies change in vision ENT: Denies dizziness and Denies headache(s) Cardiovascular: Cardiovascular: Denies chest pain and Denies rapid heart rate Respiratory: Respiratory: Denies cough Genitourinary: Genitourinary: Denies abnormal vaginal bleeding Neurologic: Denies dizziness and Denies headache(s) Exam Const: General: cooperative, healthy appearing, comfortable and no acute distress Orientation/consciousness: patient oriented x3 Resp: Effort & Inspection: normal respiratory effort Auscultation: clear to auscultation bilaterally Cardio: Rate: regular rate GI: Inspection: normal to inspection and incision (5 LSC incisions ) GI Palp: Yes abdominal tenderness (appropriate) and Yes Soft to palpation Auscultation: normal bowel sounds : Other: normal bleeding on pad Skin: General skin exam: normal color Neuro: General: patient oriented x3 Psych: Appearance: grossly normal Affect: normal affect Attitude: cooperative BEAD INSPECTOR - PN: Obj Data Vital Signs Vital Signs: Vital Signs - 24 hr 09/22/23 09:30 09/22/23 09:45 09/22/23 10:00 Temperature 97.5 F L Pulse Rate 93 92 88 Respiratory Rate 16 16 20 Blood Pressure 111/79 119/73 102/51 L Pulse Oximetry 100 100 95 Oxygen Delivery Simple Face Mask Simple Face Mask Room Air Oxygen Flow Rate 8 8 09/22/23 10:15 09/22/23 10:30 09/22/23 10:40 Temperature 98.2 F Pulse Rate 87 84 84 Respiratory Rate 18 18 16 Blood Pressure 105/64 108/62 92/49 L Pulse Oximetry 94 95 98 Oxygen Delivery Room Air Room Air Oxygen Flow Rate 09/22/23 15:30 09/22/23 18:55 09/23/23 00:30 Temperature 97.7 F 96.4 F L 96.5 F L Pulse Rate 91 72 69 Respiratory Rate 16 16 16 Blood Pressure 113/60 110/61 98/62 L Pulse Oximetry 96 98 98 Oxygen Delivery Oxygen Flow Rate 09/23/23 04:57 Temperature 96.8 F L Pulse Rate 74 Respiratory Rate 16 Blood Pressure 92/51 L Pulse Oximetry 100 Oxygen Delivery Oxygen Flow Rate Intake/Output Intake/Output: Intake & Output 09/20/23 09/21/23 09/22/23 09/23/23 23:59 23:59 23:59 23:59 Intake Total 2190 Output Total 1335 Balance 855 Meds/Results Medications: Active Medications Generic Name Dose Route Start Last Admin Trade Name Freq PRN Reason Stop Dose Admin Acetaminophen 1,000 mg 09/22/23 12:00 09/23/23 05:54 Acetaminophen 500 Mg Tablet PO 1,000 mg Q6H PAT Administration Atorvastatin Calcium 20 mg 09/22/23 21:00 09/22/23 21:35 Atorvastatin 20 Mg Tablet PO 20 mg HS PAT Administration Docusate Sodium 100 mg 09/22/23 17:00 09/22/23 17:57 Docusate Sodium 100 Mg
[2023-09-23 06:45] VITALS: BP 90/55; PULSE 70; RESP 14; TEMP 36.6; O2SAT 99
[2023-09-23] MEDS: oxyCODONE HCL (*CRX) 5 MG TAB IR 10 MG PO (06:45)
== END 2023-09-23 09:10 | disposition home or self-care (01) ==
LOC: ANHSURGERY 05:53 → ANHOB2 10:52
PROVIDERS: PCP Internal Medicine; Visit Provider Obstetrics & Gynecology
PROC: (CPT 58570; principal; 2023-09-22 07:30)
PROC: 0TJB8ZZ Inspection of Bladder, Via Natural or Artificial Opening Endoscopic (ICD-10-PCS; CPT 52000; 2023-09-22 07:30)
DX: N80.03 Adenomyosis of the uterus (principal); N73.6 Female pelvic peritoneal adhesions (postinfective); D25.1 Intramural leiomyoma of uterus; N83.292 Other ovarian cyst, left side; N83.291 Other ovarian cyst, right side; J45.909 Unspecified asthma, uncomplicated; J44.9 Chronic obstructive pulmonary disease, unspecified; E78.00 Pure hypercholesterolemia, unspecified; F17.210 Nicotine dependence, cigarettes, uncomplicated; E66.9 Obesity, unspecified; Z68.35 Body mass index [BMI] 35.0-35.9, adult; Z79.51 Long term (current) use of inhaled steroids; Z86.73 Personal history of transient ischemic attack (TIA), and cerebral infarction without residual deficits; Z82.49 Family history of ischemic heart disease and other diseases of the circulatory system; Z90.722 Acquired absence of ovaries, bilateral
CPT/HCPCS: 58570; S2900; 36415; 80048; 82948; 85025; 86850; 86900; 86901; 88307; 99199; A9270; J0690; J1100; J1170; J1885; J2250; J2371; J2405; J2704; J3010; J7030; J7120

== ENCOUNTER 2023-10-09 14:16 | Emergency (ER) | payer OTHER, SELFPAY ==
--- NOTE | ~2023-10-09 | CT_ITS ---
EXAMINATION: CT abdomen pelvis w con DATE: 10/09/2023 18:10 INDICATION: Postoperative abdominal pain TECHNIQUE: Computed tomography (CT) of the abdomen and pelvis was performed with 100 mL Omnipaque-350 intravenous contrast. Automated exposure control and iterative reconstruction technique were employe d. The dose-length product was 1064.43 mGy-cm. COMPARISON: None FINDINGS: Normal flat triangular intrafissural lymph node along the right minor fissure. Visualized lower lungs are clear. Heart size is normal. No pericardial or pleural effusion. Liver, gallbladder, spleen, estrada creas, bilateral adrenal glands and kidneys are normal. The bands of groundglass opacity along likely prior laparoscopy port tracks in the subcutaneous fat of the anterior abdomen. Uterus is not visuali zed consistent with reported recent hysterectomy. Minimal free fluid in expected minimal amount of po stoperative stranding in the region of the uterine fossa. No abscess or appreciable hematoma. Bilater al ovaries and bladder are unremarkable. Bowels including the appendix are normal. No pathologically enlarged abdominal or pelvic lymphadenopathy. Mild lumbar dextrocurvature. Minimal scattered degenera tive skeletal changes in the spine and pelvis. IMPRESSION: 1. Postoperative changes consistent with recent laparoscopic hysterectomy. No evident abscess, hemato ma or other acute intra-abdominal/pelvic process. Reviewed, dictated and finalized at location A. RATIONS EXPERT IMPRESSION: 1. Postoperative changes consistent with recent laparoscopic hysterectomy. No e vident abscess, hematoma or other acute intra-abdominal/pelvic process.
[2023-10-09 14:59] VITALS: BP 96/66; PULSE 96; RESP 18; TEMP 36.4; O2SAT 100
[2023-10-09 15:16] LABS: Basophils Absolute Auto 0.1 K/mm3 (0.0-0.1); Basophils Percent Auto 0.6 % (0.2-1.2); Eosinophils Absolute Auto 0.2 K/mm3 (0-0.3); Eosinophils Percent Auto 1.4 % (0-4.4); Hematocrit 47.3 % (37.0-47.0); Hemoglobin 15.6 g/dL (12.0-15.0); Immature Granulocyte Absolute 0.04 K/mm3 (0.00-0.031); Immature Granulocyte Percent A 0.3 % (0-0.5); Lymphocytes Absolute Auto 3.13 K/mm3 (0.9-3.2); Mean Corpuscular Hemoglobin 30.3 pg (26-34); Mean Corpuscular Volume 91.8 fl (80-100); Mean Platelet Volume 9.6 fl (7.4-10.4); Monocytes Absolute Auto 0.6 K/mm3 (0.1-0.6); Monocytes Percent Auto 5.1 % (2.6-8.5); Neutrophils Percent Auto 66.6 % (45.5-73.1); Platelet Count Result 454 k/mm3 (150-375); Red Blood Count 5.15 M/mm3 (4.2-5.4); Red Cell Distribution Width 12.8 % (11.5-14.5)
[2023-10-09 15:27] LABS: Alanine Aminotransferase 48 U/L (6-35); Albumin Level 4.9 g/dL (3.5-5.1); Alkaline Phosphatase 86 U/L (38-126); Anion Gap 14 mmol/L (8-16); Aspartate Amino Transferase 30 U/L (14-36); Bilirubin,Total 0.7 mg/dL (0.2-1.3); Blood Urea Nitrogen 16 mg/dL (7-17); Calcium 9.8 mg/dL (8.4-10.2); Carbon Dioxide 23 mmol/L (22-30); Chloride 103 mmol/L (98-107); Estimated CRCL calculation 77 ml/min; Estimated Glomerular Filt Rate > 60; Glucose 100 mg/dL (65-110); Lipase 240 U/L (23-300); Potassium 4.1 mmol/L (3.4-5.0); Sodium 140 mmol/L (137-145)
[2023-10-09 15:34] LABS: Appearance Urine Clear (Clear); Bacteria Urine None Seen /hpf; Bilirubin Urine Negative (Negative); Blood Urine Trace (Negative); Color Urine Yellow (Yellow); Glucose Urine UA Negative (Negative); Ketones Urine Negative (Negative); Leukocyte Esterase Ur Negative LEU/UL (Negative); Nitrate Urine Negative (Negative); Protein Urine Negative (Negative); Specific Grav Ur 1.012 (1.001-1.035); Squamous Epithelial Cell Urine None seen /hpf (Few); Urobilinogen Urine 0.2 mg/dL (<2.0); WBC Urine 0-5 /hpf
[2023-10-09 15:37] LABS: Add Urine Microscopic? YES
--- NOTE | 2023-10-09 17:04 | ED.ABDPAIN ---
HPI - Abdominal Pain General Chief Complaint: Abdominal Pain Stated Complaint: post op pain Time Seen by Provider: 10/09/23 17:04 History of Present Illness HPI narrative: Patient is 37 year old female here with abdominal and pelvic pain. She is 2 weeks postoperative after a hysterectomy on 09/22/[address] Browning. Patient notes she has had fairly persistent pain since the surgery. The last couple of nights the pain has brought her to tears. She notes that it seems to be in her lower abdomen as well as her left upper quadrant. Pains associated with a spasm type feeling in her bladder when she urinates and some hot flashes. She denies any nausea or vomiting. She did see her doctor, Dr. Browning today who was concerned that her pain was greater than expected this far from surgery and sent her in for evaluation for possible abscess or UTI. Patient denies any cough or congestion. Related Data Home Medications Medication Instructions Recorded Confirmed atorvastatin 20 mg tablet 20 mg PO DAILY 03/13/21 10/09/23 cholecalciferol (vitamin D3) 25 25 mcg PO DAILY 03/13/21 10/09/23 mcg (1,000 unit) capsule (Vitamin D3) duloxetine 30 mg capsule,delayed 30 mg PO HS 03/13/21 10/09/23 release metoprolol tartrate 25 mg tablet 25 mg PO BID 03/13/21 10/09/23 doxylamine succinate 25 mg tablet 25 mg PO HS 07/07/23 09/25/23 (Unisom (doxylamine)) albuterol sulfate 90 mcg/actuation 1 puff inhalation PRN PRN 07/25/23 10/09/23 aerosol inhaler Shortness Of Breath cetirizine 10 mg tablet 10 mg PO DAILY 07/25/23 10/09/23 Allergies Allergy/AdvReac Type Severity Reaction Status Date / Time amoxicillin Allergy Mild RASH Verified 10/09/23 15:02 Review of Systems Review of Systems: All systems reviewed & are unremarkable except as noted in HPI and below PMFSH Past Medical History Medical History Asthma COPD (chronic obstructive pulmonary disease) Encounter for IUD removal mirena iud removal 02/25/2017 Epigastric pain High cholesterol Migraines Nausea Panic attacks Stroke Tachycardia Tonsillectomy planned Surgical History Surgical History Delivery by section H/O gynecological procedure mirena IUD insertion & removal of IUD 01/28/2017 Mirena IUD removal and subsequent insertion of new device 2011 H/O gynecological procedure laparoscopic unilateral ovarian cystectomy, bilateral salpingectomy, HSC/ D&C, and possible myomectomy. 09/22/23 hysterectomy Family History Family History Mother Diabetes mellitus Family history of seizure disorder Father Family history of chronic obstructive pulmonary disease Grandparent Cerebrovascular accident Family history of heart disease in male family member before age 55 Diabetes mellitus Other Dementia Family history of transient ischemic attacks Heart disease Hypertension Hypoglycemia Malignant tumor of ovary Pulmonary embolism Social History Social History Smoking packs per day: 0.5 Smoking cigarettes per day: 10.0 Years smoked: 10 Smoking pack-years: 5.00 Smoking status: Current every day smoker Tobacco type: cigarettes Second hand tobacco smoke exposure: No Smoking end date: 11/24/03 Alcohol intake: current Drinks per week: 4 Alcohol use details: occasional prior to pancreatitis Substance use: never Substance use type: does not use Lack of Transportation: YES Lack of Food: Sometimes True Current Housing: I Do Not Have Housing Concerned About Future Housing: Decline to Answer Difficulty Paying Gas/Electric Bills: Decline to Answer Difficulty Paying for Meds: Decline to Answer Currently Unemployed: Decline to Answer Education: Bachelor's Degree Difficulty w/ Childcare or Family Care: No Living a
[2023-10-09 17:17] VITALS: PULSE 96; RESP 16; O2SAT 98
[2023-10-09] MEDS: SODIUM CHLORIDE 0.9% IV 1,000 ML 999 ML IV CONT (17:28)
[2023-10-09] MEDS: MORPHINE SULFATE (*CRX) 4 MG/ML INJ IV PUSH (17:29)
[2023-10-09] MEDS: ONDANSETRON INJ 4 MG/2 ML VIAL IV PUSH (17:29)
[2023-10-09 18:15] VITALS: BP 117/82; PULSE 95; RESP 20; O2SAT 97
[2023-10-09 19:02] VITALS: BP 116/78; PULSE 93; RESP 16; O2SAT 99
== END 2023-10-09 19:07 | disposition home or self-care (01) ==
PROVIDERS: Emergency Provider Student in an Organized Health Care Education/Training Program; PCP Internal Medicine
DX: G89.18 Other acute postprocedural pain (principal); R10.9 Unspecified abdominal pain; J44.9 Chronic obstructive pulmonary disease, unspecified; E78.00 Pure hypercholesterolemia, unspecified; Z86.73 Personal history of transient ischemic attack (TIA), and cerebral infarction without residual deficits; Z87.891 Personal history of nicotine dependence; Z90.79 Acquired absence of other genital organ(s); Z90.710 Acquired absence of both cervix and uterus
CPT/HCPCS: 36415; 74177; 80053; 81001; 83690; 85025; 96361; 96374; 96375; 99284; J2270; J2405; J7030; Q9967

== ENCOUNTER 2023-12-30 12:36 | Outpatient (CLI) | payer OTHER, SELFPAY ==
[2023-12-30 12:52] LABS: Basophils Absolute Auto 0.06 K/mm3 (0.00-0.10); Basophils Percent Auto 0.6 % (0.0-1.0); Eosinophils Absolute Auto 0.18 K/mm3 (0.02-0.50); Eosinophils Percent Auto 1.7 % (1.0-6.0); Hematocrit 42.9 % (35.0-49.0); Hemoglobin 14.4 g/dL (12.0-15.0); Immature Granulocyte Absolute 0.02 K/mm3 (0.00-0.00); Immature Granulocyte Percent A 0.2 % (0.0-0.0); Lymphocytes Absolute Auto 3.45 K/mm3 (1.10-4.50); Lymphocytes Percent Auto 33.4 % (18.0-42.0); Mean Corpuscular HGB Conc 33.6 g/dL (32.0-36.0); Mean Corpuscular Hemoglobin 29.9 pg (27.0-31.0); Mean Corpuscular Volume 89.2 fL (78.0-102.0); Mean Platelet Volume 9.3 fl (9.2-11.8); Monocytes Absolute Auto 0.54 K/mm3 (0.10-0.90); Monocytes Percent Auto 5.2 % (2.0-11.0); Neutrophils Absolute Auto 6.1 K/mm3 (1.7-7.2); Neutrophils Percent Auto 58.9 % (50.0-70.0); Platelet Count Result 366 K/mm3 (150-420); Red Blood Count 4.81 M/mm3 (4.20-5.40); Red Cell Distribution Width 12.7 % (11.6-14.4); White Blood Count 10.3 K/mm3 (4.8-10.8)
[2023-12-30 12:53] LABS: Appearance Urine Clear (Clear); Bilirubin Urine Negative (Negative); Blood Urine Trace-Intact (Negative); Color Urine Light Yellow (Yellow); Glucose Urine UA Negative (Negative); Ketones Urine Negative (Negative); Leukocyte Esterase Ur Negative LEU/UL (Negative); Nitrate Urine Negative (Negative); Protein Urine Negative (Negative); Specific Grav Ur 1.015 (1.010-1.020); Urobilinogen Urine 0.2 mg/dL (0.2-1.0)
[2023-12-30 13:01] LABS: Add Urine Microscopic? YES; Bacteria Urine Trace /hpf; Squamous Epithelial Cell Urine Few /hpf (Few); WBC Urine None seen /hpf (0-3)
[2023-12-30 13:02] LABS: Hemoglobin A1C 5.6 % (<5.7)
[2023-12-30 14:06] LABS: Alanine Aminotransferase 70 U/L (14-59); Albumin Level 4.2 g/dL (3.4-5.0); Alkaline Phosphatase 70 U/L (46-116); Anion Gap 8 mmol/L (8-16); Aspartate Amino Transferase 31 U/L (15-37); Bilirubin,Total 0.5 mg/dL (0.00-1.00); Blood Urea Nitrogen 17 mg/dL (7-18); Calcium 9.1 mg/dL (8.5-10.1); Carbon Dioxide 28 mmol/L (21-32); Chloride 102 mmol/L (98-108); Cholesterol 152 mg/dL (0-200); Creatine Kinase 66 U/L (26-192); Estimated Glomerular Filt Rate > 60; Glucose 101 mg/dL (70-99); HDL Direct 48 mg/dL (40-60); LDL Cholesterol Calculated 72 mg/dL (<130); Osmolality Calculated 287 mOsm/kg (285-295); Potassium 4.6 mmol/L (3.5-5.1); Sodium 138 mmol/L (136-145); Total Protein 7.5 g/dL (6.4-8.2); Triglycerides 162 mg/dL (0-150)
[2024-01-02 12:22] LABS: Vitamin D 25 Hydroxy 50 ng/mL (30-100)
== END 2023-12-30 12:37 | disposition home or self-care (01) ==
LOC: CHSLAB 12:38
PROVIDERS: PCP Internal Medicine; Visit Provider Internal Medicine
DX: N39.0 Urinary tract infection, site not specified (principal); E78.2 Mixed hyperlipidemia; E55.9 Vitamin D deficiency, unspecified; R73.01 Impaired fasting glucose
CPT/HCPCS: 36415; 80053; 80061; 81001; 82306; 82550; 83036; 84439; 84443; 84481; 85025

== ENCOUNTER 2024-02-09 11:30 | Outpatient (CLI) | payer OTHER, SELFPAY | END 2024-02-09 11:31 | disposition home or self-care (01) | LOC: CHSAUDIO 11:36 | PROVIDERS: PCP Internal Medicine; Visit Provider Internal Medicine | DX: H90.3 Sensorineural hearing loss, bilateral (principal) | CPT/HCPCS: 92557; 92567 ==

== ENCOUNTER 2024-04-03 15:10 | Outpatient (CLI) | payer OTHER, SELFPAY ==
[2024-04-03 16:46] LABS: Alanine Aminotransferase 43 U/L (14-59); Albumin Level 3.8 g/dL (3.4-5.0); Alkaline Phosphatase 62 U/L (46-116); Anion Gap 10 mmol/L (4-12); Aspartate Amino Transferase 21 U/L (15-37); Bilirubin,Total 0.2 mg/dL (0.00-1.00); Blood Urea Nitrogen 18 mg/dL (7-18); Carbon Dioxide 28 mmol/L (21-32); Chloride 100 mmol/L (98-108); Estimated Glomerular Filt Rate > 60; Glucose 121 mg/dL (70-99); Osmolality Calculated 288 mOsm/kg (285-295); Potassium 4.2 mmol/L (3.5-5.1); Sodium 138 mmol/L (136-145); Total Protein 7.1 g/dL (6.4-8.2)
[2024-04-03 18:18] LABS: Bilirubin Urine Negative (Negative); Blood Urine Trace-intact (Negative); Color Urine Light Yellow (Yellow); Glucose Urine UA Negative (Negative); Ketones Urine Negative (Negative); Leukocyte Esterase Ur Negative (Negative); Nitrate Urine Negative (Negative); Protein Urine Negative (Negative); Specific Grav Ur 1.025 (1.010-1.020); Urobilinogen Urine 0.2 mg/dL (0.2-1.0)
[2024-04-03 18:48] LABS: Add Urine Microscopic? YES; Appearance Urine Sl Cloudy (Clear); RBC Urine 0-2 /hpf (0-2)
[2024-04-03 18:49] LABS: Amorphous Sediment Urine Few; Bacteria Urine 2+ /hpf; Squamous Epithelial Cell Urine Moderate /hpf (Few)
[2024-04-06 06:16] LABS: Hemoglobin A1C 5.5 % (<5.7)
== END 2024-04-03 15:11 | disposition home or self-care (01) ==
LOC: CHSLAB 15:12
PROVIDERS: PCP Internal Medicine; Visit Provider Internal Medicine
DX: R31.29 Other microscopic hematuria (principal); E78.2 Mixed hyperlipidemia
CPT/HCPCS: 36415; 80053; 81001; 83036; 88112

== ENCOUNTER 2024-05-05 14:13 | Outpatient (RCR) | payer OTHER, SELFPAY ==
--- NOTE | 2024-05-05 16:33 | OPREHPOC ---
Outpatient Therapy Plan of Care This is a Multidisciplinary Plan of Care that may contain components documented by all disciplines (PT, OT, and ST.) PT Problem 1 PT Problem #1 Knowledge Deficit PT Goal 1 Goal The patient will be independent in a home exercise program. Target Visit 2 PT Problem 2 PT Problem #2 Pain PT Goal 1 Goal The patient will report no greater than 4/10 low back pain with daily activities. Target Visit 6 PT Problem 3 PT Problem #3 Impaired Strength PT Goal 1 Goal The patient will demonstrate 4/5 abdominal and hip extension strength to support the spine for daily activities. Target Visit 6 PT Problem 4 PT Problem #4 Impaired Functional Mobil PT Goal 1 Goal 1. The patient will demonstrate 50% or less self perceived disability per the back index questionnaire. 2. The patient will be able to ambulate 600 feet with 3/10 or less low back pain with the 6 minute walk test. Target Visit 6
--- NOTE | 2024-05-05 16:33 | PTOPEVAL1 ---
Assessment and note entered by Joelle Canales, PT Evaluation Information Assessment Status Evaluation Diagnosis Low Back Pain Onset 04/30/24 Subjective Information Keeley Monaco reports she has been having low back pain for several years and a MRI a few years ago showed osteoarthritis, spondylosis, and degenerative disc disease. She has central lower back pain that feels deep and near the bone with sciatica symptoms occasionally as well. She notes she has to watch how active she is because she will have to take a day to rest after a very active day. She had blood work done recently that showed inflammation so Dr. Ledesma wanted her to get another MRI but her insurance won't pay for it until she tries PT. She is noting worse pain with walking more than household distances, standing more than 10 minutes, lifting heavy items, and bending over. She notes the most comfortable way she can move is in her pool. Reported Pain Level Pain Score 7: Self Report Assessment PT Clinical Summary Keeley Monaco presents with chronic low back pain. She has had a MRI in the past that showed osteoarthritis, spondylosis, and degenerative disc disease. She notes constant low back pain that worsens with forward bending, walking, standing more than 10 minutes, lifting, and general activity. She feels limited with all activity due to her back pain. She objectively demonstrates decreased and painful lumbar AROM; decreased core and hip strength; decreased hamstring, piriformis, and hip adductor flexibility; and decreased functional abilities. She will benefit from skilled PT to address these limitations. Plan of Care Interventions Electrical Stimulation,Hot Pack/Cold Pack,Manual Therapy,Mechanical Traction,Neuro Re-education, Patient/Caregiver Educati,Therapeutic Activities, Therapeutic Exercise PT Services Indicated Yes Treatment Frequency and 1 time a week for 6 visits Duration These treatments will address the objective and functional deficits as defined above. The patient will be advanced safely and appropriately in order for the patient to progress towards his/her prior level of function. Additional exercises will be introduced and as well as a comprehensive home exercise program upon discharge, if needed, ?to ensure carryover of functional gains achieved in the clinic. This treatment plan has been reviewed and agreement upon by the patient.
--- NOTE | 2024-06-03 07:59 | PCPTNOTE ---
Patient called & cancelled scheduled appointment on 06/01/24 and did not give a reason. -Joelle Canales, PT
--- NOTE | 2024-06-14 13:31 | PCPTNOTE ---
Patient called & cancelled scheduled appointment this date due to not feeling well and her mother was recently diagnosed with COVID. -Joelel Canales, PT
== END 2024-08-03 23:59 | disposition home or self-care (01) ==
LOC: CHSPT 14:13
PROVIDERS: Visit Provider Internal Medicine
DX: M54.50 Low back pain, unspecified (principal)
CPT/HCPCS: 97014; 97110; 97161; G0283

== ENCOUNTER 2024-12-22 12:43 | Outpatient (CLI) | payer BC, SELFPAY ==
--- NOTE | ~2024-12-22 | MMUS_ITS ---
EXAMINATION: MM diagnostic jarrett BI w trey, US breast LT limited HISTORY: Palpable left breast abnormality TECHNIQUE: Additional 3-D tomosynthesis images of the breasts were performed and synthetic 2-D images were generated. CAD analysis was submitted and interpreted. High resolution Limited left breast ultr asound was performed. COMPARISON: No prior studies for comparison. BREAST PARENCHYMAL COMPOSITION: Not dense: There are scattered areas of fibroglandular density. FINDINGS: MAMMOGRAPHIC FINDINGS: There are no suspicious masses, calcifications or architectural distortion in either breast to sugges t malignancy. ULTRASOUND: Limited left breast ultrasound: At 2:00, 8 cm from the nipple in the area of palpable concern there i s an oval slightly irregular shaped hypoechoic mass measuring 9 x 4 x 4 mm. No internal vascularity. No posterior shadowing. IMPRESSION: 1. Slightly irregular shaped hypoechoic 9 mm left breast mass at 2:00, 8 cm from the nipple. No mammo graphic correlate. 2. Ultrasound-guided left breast biopsy recommended. BI-RADS category 4, suspicious findings. Reviewed, dictated and finalized at location A. E ADJUSTER IMPRESSION: 1. Slightly irregular shaped hypoechoic 9 mm left breast mass at 2:00, 8 cm fro m the nipple. No mammographic correlate. 2. Ultrasound-guided left breast biopsy recommended. BI-RADS category 4, suspicious findings.
== END 2024-12-22 12:44 | disposition home or self-care (01) ==
LOC: ANHIMG 12:47
PROVIDERS: PCP Internal Medicine; Visit Provider Obstetrics & Gynecology
DX: N63.21 Unspecified lump in the left breast, upper outer quadrant (principal)
CPT/HCPCS: 76642; 77062; 77066; G0279

== ENCOUNTER 2025-10-26 14:26 | Outpatient (CLI) | payer OTHER, SELFPAY ==
[2025-10-26 14:46] LABS: Hematocrit 45.3 % (35.0-49.0); Hemoglobin 15.1 g/dL (12.0-15.0); Mean Corpuscular HGB Conc 33.3 g/dL (32-36); Mean Corpuscular Hemoglobin 30.6 pg (27.0-31.0); Mean Corpuscular Volume 91.7 fL (78.0-102.0); Platelet Count Result 371 K/mm3 (150-420); Red Blood Count 4.94 M/mm3 (4.20-5.40); White Blood Count 12.4 K/mm3 (4.8-10.8)
[2025-10-26 14:58] LABS: Add Urine Microscopic? NO; Appearance Urine Clear (Clear); Glucose Urine UA Negative (Negative); Leukocyte Esterase Ur Negative (Negative); Nitrate Urine Negative (Negative); Specific Grav Ur <= 1.005 (1.010-1.020)
[2025-10-26 15:28] LABS: Alanine Aminotransferase 44 U/L (6-35); Albumin Level 5.0 g/dL (3.5-5.1); Alkaline Phosphatase 56 U/L (38-126); Anion Gap 15 mmol/L (4-12); Aspartate Amino Transferase 35 U/L (14-36); Bilirubin,Total 0.8 mg/dL (0.2-1.3); Blood Urea Nitrogen 12 mg/dL (7-17); Calcium 9.9 mg/dL (8.4-10.2); Carbon Dioxide 25 mmol/L (22-30); Chloride 100 mmol/L (98-107); Cholesterol 162 mg/dL (0-200); Creatine Kinase 105 U/L (30-135); Estimated Glomerular Filt Rate > 60; Glucose 82 mg/dL (65-110); HDL Direct 53 mg/dL; Osmolality Calculated 288 mOsm/kg (285-295); Potassium 4.5 mmol/L (3.4-5.0); Sodium 140 mmol/L (137-145); Total Protein 7.6 g/dL (6.3-8.2); Triglycerides 119 mg/dL (<150)
[2025-10-26 15:37] LABS: Hemoglobin A1C 5.6 % (<5.7)
[2025-10-26 15:41] LABS: Free T4 Free Thyroxine 0.95 ng/dL (0.78-2.19)
--- OUTSIDE RECORDS SUMMARY | 2025-10-26 15:50 | XMS_ITS | Patient Health Record ---
Author Organization [facility] Address [address] [facility] [address] [place] [address] Care Team Providers Care Pollution Control Technician Name Role Phone Baltazar NOVA, Champ Primary Care Provider Heath Queen Unavailable [phone] Maria E Elena Unavailable [phone] Allergies Allergen (clinical drug ingredient) Drug/Non Drug Allergy documented on EMR Reaction Allergy Type Onset Date Status SEROquel Unknown Drug Allergy Active Penicillin Unknown Drug Allergy Active Results Component Value Reference Range Notes UDT Reviewed date:05/12/2025 09:17:00 AM Interpretation: Performing Lab: Notes/Report: Amphetamine (AMP) N 0 - 1000 ng/ml Buprenorphine (BUP) N 0 - 10 ng/ml Oxazepam (BZO) N 0 - 300 ng/ml Cocaine (SUSU) N 0 - 300 ng/ml Methamphetamine (mAMP) N 0 - 300 ng/ml Methylenedioxymethamphetamine (MDMA) N 0 - 500 ng/ml Morphine (MOP) N 0 - 25 ng/ml Methadone (MTD) N 0 - 300 ng/ml Oxycodone (OXY) N 0 - 300 ng/ml THC N 0 - 50 ng/ml x N 0 - 1000 ng/ml x N 0 - 1000 ng/ml x N 0 - 300 ng/ml x N 0 - 300 ng/ml x N 0 - 300 ng/ml UDT Reviewed date:06/24/2025 09:43:42 AM Interpretation: Performing Lab: Notes/Report: Amphetamine (AMP) N 0 - 1000 ng/ml Buprenorphine (BUP) N 0 - 10 ng/ml Oxazepam (BZO) N 0 - 300 ng/ml Cocaine (SUSU) N 0 - 300 ng/ml Methamphetamine (mAMP) N 0 - 300 ng/ml Methylenedioxymethamphetamine (MDMA) N 0 - 500 ng/ml Morphine (MOP) N 0 - 25 ng/ml Methadone (MTD) N 0 - 300 ng/ml Oxycodone (OXY) N 0 - 300 ng/ml THC N 0 - 50 ng/ml x N 0 - 1000 ng/ml x N 0 - 1000 ng/ml x N 0 - 300 ng/ml x N 0 - 300 ng/ml UDT Reviewed date:06/16/2025 02:44:34 PM Interpretation: Performing Lab: Notes/Report: Amphetamine (AMP) n 0 - 1000 ng/ml Buprenorphine (BUP) n 0 - 10 ng/ml Oxazepam (BZO) n 0 - 300 ng/ml Cocaine (SUSU) n 0 - 300 ng/ml Methamphetamine (mAMP) n 0 - 300 ng/ml Methylenedioxymethamphetamine (MDMA) n 0 - 500 ng/ml Morphine (MOP) n 0 - 25 ng/ml Methadone (MTD) n 0 - 300 ng/ml Oxycodone (OXY) n 0 - 300 ng/ml THC n 0 - 50 ng/ml x n 0 - 1000 ng/ml x n 0 - 1000 ng/ml x n 0 - 300 ng/ml x n 0 - 300 ng/ml x n 0 - 300 ng/ml UDT (10 Panel) Reviewed date:09/29/2025 04:47:38 PM Interpretation: Performing Lab: Notes/Report: Amphetamine (AMP) n Buprenorphine (BUP) n Oxazepam (BZO) p Cocaine (SUSU) n Methamphetamine (mAMP) n Methylenedioxymethamphetamine (MDMA) n Morphine (MOP) n Methadone (MTD) n Oxycodone (OXY) n THC n Reason For Referral No Information Medications Medication SIG (Take, Route, Frequency, Duration) Notes Start Date End Date Status Multivitamin - Liquid as directed Orally Active Albuterol Sulfate HFA 108 (90 Base) MCG/ACT Aerosol Solution Inhalation; Duration: 25 Days Active DULoxetine HCl 20 MG Capsule Delayed Release Particles TAKE ONE CAPSULE BY MOUTH DAILY; Duration: 90 Active Metoprolol Succinate ER 25 MG Tablet Extended Release 24 Hour 1.5 tablet Oral Once a day; Duration: 30 days Active Escitalopram Oxalate 5 MG Tablet 1 tablet Orally Once a day; Duration: 90 days 09/29/2025 Active Atorvastatin Calcium 20 MG Tablet Oral; Duration: 30 Days Active Unisom 05/12/2025 Active ALPRAZolam 0.25 MG Tablet 1 tablet Orally once a day; Duration: 30 days As needed must last 30 days 09/29/2025 Active Escitalopram Oxalate 5 MG Tablet TAKE ONE TABLET BY MOUTH DAILY; Duration: 30 Active DULoxetine HCl 20 MG Capsule Delayed Release Particles 1 capsule Oral Once a day; Duration: 90 days 09/29/2025 Active Social History Tobacco Use: Social History Observation Description Date Details (start date - stop date) Current Smoker NA - NA Sex Assigned At : Social History Observation Description Sex Assigned At Female Social History Social History Social Info Question Answer Notes Household: Marital Status: Number of Adults in household: 2 Number of Children in Household: 0 Drug/Alcohol: Social Info Question Answer Notes Drugs Have you used drugs other than those for medical reasons in the past 12 months? No AUDIT-C (Standard) Did you have a drink containing alcohol in the past year? Yes How often did you have six or more drinks on one occasion in the past year? Never (0 point) How many drinks did you have on a typical day when you were drinking in the past year? 3 or 4 drinks (1 point) How often did you have a drink containing alcohol in the past year? 2 to 3 times a week (3 points) Tobacco Use: Social Info Question Answer Notes Tobacco Control (Standard) Tobacco use: Current smoker How often do you smoke cigarettes? Every day How many cigarettes a day do you smoke? 6-10 How soon after you wake up do you smoke your first cigarette? After 60 minutes Are you interested in quitting? 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, enjoys work, finds it rewarding Occupation: Laid Off From [employer] Position Caffeine use: Avoids Caffeine Living situation: Lives With Spouse, Children Are Grown Alcohol use: Stopped Drinking Since November Occupation: Laid Off From [employer] C[employer] Position Caffeine use: Avoids Caffeine Living situation: Lives With Spouse, Children Are Grown Alcohol use: Stopped Drinking Since November Occupation: Starting A New Job, Currently In Probationary Period Living situation: Daughter Lives With Boyfriend In Their Own Place Problems Problem Type SNOMED Code ICD Code Onset Dates Problem Status W/U Status Risk Notes Problem Generalized anxiety disorder (25438166) Generalized anxiety disorder (F41.1) Active confirmed Problem Essential hypertension (36858646) Essential (primary) hypertension (I10) Active confirmed Problem Moderately severe depression (261730046) Moderately severe depression (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) Active confirmed Vital Signs Heart Rate 73 /min 09/29/2025 Height-cm 157.48 cm 09/29/2025 Blood pressure diastolic 73 mm Hg 09/29/2025 Weight-kg 78.47 kg 09/29/2025 Height 62 in 09/29/2025 Blood pressure systolic 107 mm Hg 09/29/2025 Weight 173 lbs 09/29/2025 BMI 31.64 kg/m2 09/29/2025 Encounters Encounter Location Date Provider Diagnosis [facility] [employer] [address] [address] 05/12/2025 Heath Fredi Generalized anxiety disorder F41.1 ; Moderately severe depression F32.A ; Encounter for screening for cardiovascular disorders Z13.6 ; Nicotine use Z72.0 ; Encounter for screening for depression Z13.31 ; Tachycardia, unspecified R00.0 ; Essential (primary) hypertension I10 and Hyperlipidemia, unspecified hyperlipidemia type E78.5 [facility] [employer] [address] [address] 06/16/2025 Heath Fredi Nicotine use Z72.0 ; Generalized anxiety disorder F41.1 ; Moderately severe depression F32.A and Encounter for screening for cardiovascular disorders Z13.6 [facility] [employer] [address] 06/23/2025 Heath Fredi Generalized anxiety disorder F41.1 and Moderately severe depression F32.A [facility] [employer] [address] 09/29/2025 Heath Fredi Generalized anxiety disorder F41.1 and Moderately severe depression F32.A [facility] [employer] [address] 06/07/2025 Maria E Elena Generalized anxiety disorder F41.1 [facility] [employer] [address] 06/20/2025 [facility] [address] [place] [address] 06/29/2025 Heath Rai Generalized anxiety disorder F41.1 [facility] [address] [place] [address] 07/31/2025 Heath Ria [facility] [address] [place] [address] 09/25/2025 Heathsarah Rai Assessments Encounter Date Diagnosis (ICD Code) Assessment Notes Treatment Notes Treatment Clinical Notes Section Notes 05/12/2025 Generalized anxiety disorder (ICD-10 - F41.1) Patient experiences severe anxiety triggered by a breast cancer scare. Avoids caffeine and alcohol due to exacerbating effects. Finds relief with Xanax 0.25 mg as needed. - Start Lexapro 5 mg, beginning with half a tablet once daily. - Consider internal referral for mental health counseling. she want to wait a month Patient experiences panic attacks characterized by dizziness, fatigue, and heart rate spikes. Episodes of tingling and numbness are reported. - Continue Xanax 0.25 mg as needed for panic attacks. Patient has a history of depression since age 14. Currently managed with duloxetine 20 mg. - Consider tapering duloxetine and switching to Lexapro if effective. 05/12/2025 Moderately severe depression (ICD-10 - F32.A) 06/07/2025 Generalized anxiety disorder (ICD-10 - F41.1) 06/16/2025 Nicotine use (ICD-10 - Z72.0) 06/23/2025 Generalized anxiety disorder (ICD-10 - F41.1) Patient reported worsening anxiety with symptoms of rapid thoughts, dizziness, and emotional distress. Anxiety exacerbated by recent family crisis and stress related to starting a new job. Patient expressed concerns about medication effects, particularly Lexapro and Xanax. Patient has been hesitant to take Xanax regularly due to fear of dependence and has self-adjusted Lexapro dose. - Recommended decreasing Lexapro dose from 10 mg to 5 mg. - Advised to use Xanax only as needed and avoid regular use to minimize risk of dependence. - Encouraged use of grounding techniques and coping strategies. - Suggested utilizing online resources for anxiety management. - Planned follow-up appointment in 2 weeks. 06/29/2025 Generalized anxiety disorder (ICD-10 - F41.1) 09/29/2025 Generalized anxiety disorder (ICD-10 - F41.1) Ongoing anxiety symptoms, less severe than previous episode. No current panic attacks or anxiety attacks. Patient manages anxiety with evening Xanax. Supportive work environment contributes to improved well-being. - Refilled Xanax (.25 mg, 1 tablet once a day, 4 refills). 09/29/2025 Moderately severe depression (ICD-10 - F32.A) Stable mood, no worsening of depression. Patient continues Lexapro (escitalopram) at 5 mg. Higher dose previously tried but increased anxiety and was intolerable. - Refilled Lexapro (5 mg, 90 days supply). - Refilled escitalopram (5 mg, 90 days supply). - Refilled duloxetine (20 mg, 90 days supply). 06/23/2025 Moderately severe depression (ICD-10 - F32.A) Patient reported emotional distress and difficulty coping, with sadness and rapid thoughts. Depression symptoms may be exacerbated by current life stressors and medication adjustments. - Encouraged continued use of duloxetine. - Suggested resuming counseling when able. - Recommended use of online mental health resources. 06/16/2025 Generalized anxiety disorder (ICD-10 - F41.1) Patient experiences severe anxiety triggered by a breast cancer scare. Avoids caffeine and alcohol due to exacerbating effects. Finds relief with Xanax 0.25 mg as needed. - Start Lexapro 5 mg, beginning with half a tablet once daily. - Consider internal referral for mental health counseling. she want to wait a month Patient experiences panic attacks characterized by dizziness, fatigue, and heart rate spikes. Episodes of tingling and numbness are reported. - Continue Xanax 0.25 mg as needed for panic attacks. Patient has a history of depression since age 14. Currently managed with duloxetine 20 mg. - Consider tapering duloxetine and switching to Lexapro if effective. Elevated anxiety persists, particularly related to starting a new job. No major anxiety or panic attacks currently, with only one recent episode related to personal stress. Patient uses Xanax 0.25 mg once daily in the evening to manage anxiety. Patient feels supported by her new team and is undergoing a 4-6 week training period. - Continue Xanax 0.25 mg once daily in the evening. 05/12/2025 Encounter for screening for cardiovascular disorders (ICD-10 - Z13.6) 06/16/2025 Moderately severe depression (ICD-10 - F32.A) Patient previously tapered duloxetine from 60 mg to 20 mg and continues on the lower dose. No major side effects from Lexapro; able to sleep well. Patient is ready to increase Lexapro from 5 mg to 10 mg. Patient may need a refill of duloxetine. - Increase Lexapro from 5 mg to 10 mg. - Continue duloxetine 20 mg. - Refill duloxetine for 90 days. - Refill Lexapro for 90 days. 05/12/2025 Nicotine use (ICD-10 - Z72.0) Patient avoids nicotine use. - Continue to avoid nicotine use. 05/12/2025 Encounter for screening for depression (ICD-10 - Z13.31) 06/16/2025 Encounter for screening for cardiovascular disorders (ICD-10 - Z13.6) 05/12/2025 Tachycardia, unspecified (ICD-10 - R00.0) Patient experiences tachycardia, managed with metoprolol. - Continue metoprolol for heart rate management. 05/12/2025 Essential (primary) hypertension (ICD-10 - I10) 05/12/2025 Hyperlipidemia, unspecified hyperlipidemia type (ICD-10 - E78.5) Patient has hyperlipidemia, managed with atorvastatin. - Continue atorvastatin for cholesterol management. 05/12/2025 Other Learning About Depression Screening material was printed Patient has COPD, managed with albuterol inhaler. - Continue albuterol inhaler as needed. Plan Of Treatment Next Appt Details Provider Name:Joelle smart, 02/10/2026 03:00:00 PM, [address] [facility] [facility] [address], [facility] [address], [place], [address], Insurance Providers Payer Name Payer Address Payer Phone Subscriber Number Group Number Insured Name Patient Relationship to Insured Coverage Start Date Coverage End Date Dariela CONKLIN [id number] [place] [address] [id number] Keeley Harrington Self - patient is the insured Medical (General) History Medical History History ICD Code Past Psychiatric History: Anxiety Disord er abdominal aortic aneurysm: No atrial fibrillation: No chronic fatigue syndrome: No essential tremor: No hyperlipidemia: No hypertension: Yes Parkinson's disease: No undefined restless leg syndrome: No stroke: No subdural hematoma: No type 1 diabetes mellitus: No type 2 diabetes mellitus: No vitamin B12 deficiency: No vitamin D deficiency: No Imported from Highlights: US Breast Left Biopsy (01/18/2025) Technically successful, uncomplicated ultrasound-guided core biopsy performed of a 0.9 cm mass in the left breast, 2:00 region, 8 cm from the nipple. A twirl-shaped tissue marker was placed at the biopsy site. The tissue marker is in good position at the biopsy site. Pathology results are pending. Mammo Left Post Clip or Wire W Yovany (01/18/2025) Post biopsy digital mammogram with tomosynthesis left breast. Breast Composition: Category B: There are scattered areas of fibroglandular density. Twirl-shaped tissue marker in good position at the biopsy site. PATHOLOGY TISSUE (01/19/2025) Pathology report demonstrates fibroadenoma. No atypia or malignancy. This is a benign lesion. Recommendation: Pending no interval breast concerns, bilateral screening mammogram is recommended in November 2025. Anxiety, started in november Depression, since age 14 Tachycardia, managed with metoprolol Copd, managed with albuterol inhaler Hypertension, managed with metoprolol Hyperlipidemia, managed with atorvastati n Generalized anxiety disorder Moderately severe depression Surgical History Surgery Date(Month/Year) hysterectomy 2022 Hospitalization History Reason Date(Month/Year) hysterectomy 2022 c-sections 2003
--- OUTSIDE RECORDS SUMMARY | 2025-10-26 15:50 | XMS_ITS | Clinical Summary ---
Author Organization [facility] Address [address] [facility] [address] [facility] [place] [address] Care Team Providers Care Form Worker Name Role Phone Francia Browning Primary Care Provider [phone] Source Comments [facility],non-owned Affiliates and Associated Physician Practices is amultiple site organization consisting of ambulatory clinics and hospital sitesin [place], [place], [place] and [place]. This disclosure is being madepursuant to the Care Everywhere program and may not contain all information available regarding this patient. Last updated 18.[facility] Allergies No known active allergies Medications * Be aware that medications may not be up to date on this document. Alwaysverify current medications with the patient. No known medications Social History Tobacco Use Types Packs/Day Years Used Date Smoking Tobacco: Never Assessed Comments Unknown Sex and Gender Information Value Date Recorded Sex Assigned at Female 01/18/2025 10:59 AM CAREER AGENT Legal Sex Female 7:07 AM CDT Gender Identity Female 01/18/2025 10:59 AM CAREER AGENT Sexual Orientation Not on file Plan of Treatment Health Maintenance Due Date Last Done Comments HIV SCREENING 2000 HEPATITIS C SCREENING 12/16/2003 DTAP/TDAP/TD VACCINES (1 - Tdap) 2004 HEPATITIS B VACCINE (1 of 3 - 19+ 3-dose series) 2004 Cervical Cancer Screening 2006 PAP SMEAR 2006 HPV VACCINE (1 - 3-dose SCDM series) 2012 PAP with HPV 2015 DEPRESSION SCREENING 11/24/2024 COVID-19 VACCINE (2024-2 6 season) 2025 INFLUENZA VACCINE (#1) 2025 ZOSTER VACCINE (1 of 2) 2035 HIB VACCINE Aged Out No longer eligi ble based on patient's age to complete this topic MENINGOCOCCAL (Group B) VACC INE SHARED DECISION-MAKING Aged Out No longer eligibl e based on patient's age to complete this topic MENINGOCOCCAL GROUPS A/C/Y/W VACCINE Aged Out No longer eligible b ased on patient's age to complete this topic PNEUMOCOCCAL VACCINE Aged Out No long er eligible based on patient's age to complete this topic Medical Devices Implanted Type Area Communications Professor Device Identifier Shelf Expiration Date Model / Serial / Lot Mrkr 17ga Rgd Ndl Radopq Ultracor Twirl - [id number] Implanted:Qty: 1 on 01/18/2025 by Elida Howell DO at [facility] [id number] 07/20/2027 [id number] / [id number] / [id number] Insurance [facility] * Guarantor: LUISITO GUTIERREZ Account Type Relation to Patient Date of Phone Billing Address Personal/Family Spouse Care Teams Form Worker Relationship Specialty Start Date End Date Francia Browning [place] [address] [place] [address] PCP - General General Surgery 01/18/25
[2025-10-26 15:55] LABS: Thyroid Stimulating Hormone 1.360 uIU/mL (0.465-4.680)
== END 2025-10-26 14:27 | disposition home or self-care (01) ==
PROVIDERS: PCP Internal Medicine; Visit Provider Internal Medicine
DX: R74.01 Elevation of levels of liver transaminase levels (principal); E78.2 Mixed hyperlipidemia; R73.01 Impaired fasting glucose; G25.81 Restless legs syndrome; R00.0 Tachycardia, unspecified
CPT/HCPCS: 36415; 80053; 80061; 81003; 82550; 83036; 84439; 84443; 85027

== ENCOUNTER 2025-10-28 14:23 | Outpatient (CLI) | payer OTHER, SELFPAY ==
--- NOTE | ~2025-10-28 | XR_ITS ---
EXAMINATION: XR abdomen/kub 1V, 10/28/2025 14:45 [employer] RECONNAISSANCE SPECIALIST HISTORY: Rt. flank pain >1 weeks; Worsening COMPARISON: No comparisons available. Technique: 3 view. Findings: Moderate fecal content, no dilated bowel loops No free air. No abnormal calcifications No acute osseous abnormality. Impression: 1. No acute abnormality. Reviewed, dictated and finalized at location P. R RECONNAISSANCE SPECIALIST Impression: 1. No acute abnormality.
== END 2025-10-28 14:24 | disposition home or self-care (01) ==
LOC: CHSIMG 14:25
PROVIDERS: PCP Internal Medicine; Visit Provider Nurse Practitioner Family
DX: R10.A1 Flank pain, right side (principal)
CPT/HCPCS: 74018